=== PATIENT | male | born 1945 | race Caucasian/White ===

== ENCOUNTER 2020-07-04 08:41 | Emergency (ER) | payer OTHER, MEDICARE ==
[2020-07-04 08:57] VITALS: BP 130/78; PULSE 80
--- NOTE | 2020-07-04 09:27 | EDM.PDOC ---
ED HPI GENERAL MEDICAL PROBLEM - General Chief Complaint: Respiratory Problem Stated Complaint: [id number] CHEST COLD/SWELLING OF LEGS Time Seen by Provider: 07/04/20 09:26 Source of Information: Reports: Patient, RN, RN Notes Reviewed History Limitations: Reports: No Limitations - History of Present Illness INITIAL COMMENTS - FREE TEXT/NARRATIVE: Patient presents to ER per wheelchair with daughters with complaint of increased shortness of breath over the past week. Patient admits to history of CHF, diabetes, atrial fibrillation. Patient denies fever chills, states he has had a cough from time to time, and vomits with coughing from time to time. Patient states he has not been able to produce any sputum. States his legs have had increased edema over the past couple of weeks. Patient is a and is seen at the [place] [facility] [place] in [place]. Family called the [place] stating the patient was very short of breath this morning. States he woke up from sleep wi th shortness of breath, increased shortness of breath with activity. Patient denies any chest pains. Any recent illness, although states he has had some sinus congestion but there has been combine and going on around his home. 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 Daughters are his caretakers, both work and nursing homes and are routinely checked for COVID, have all been negative. Patient admits to taking hydrochlorothiazide on a daily basis, and also takes a water pill, unknown. [facility], and increased dose began last evening. [facility] also state patient has had a 10 pound weight increase since 06/21/2020. Onset: Gradual - Related Data Allergies Allergy/AdvReac Type Severity Reaction Status Date / Time No Known Allergies Allergy Verified 07/04/20 08:57 Home Meds: Home Meds Clopidogrel [Plavix] 75 mg PO BEDTIME 02/05/15 [History] Dorzolamide HCl/Timolol Maleat [Dorzolamide-Timolol Eye Drops] 1 drop EYEBOTH BID 02/05/15 [History] Folic Acid 1 mg PO DAILY 02/05/15 [History] Gabapentin [Neurontin] 100 mg PO BID 02/05/15 [History] Insulin Aspart [NovoLOG] 20 units SQ ACBREAKFAST 02/05/15 [History] Insulin Glarg,Human.Rec.Analog [Lantus Solostar] 75 units SQ BEDTIME 02/05/15 [History] Latanoprost [Xalatan 0.005% Ophth Soln] 1 drop EYEBOTH BEDTIME 02/05/15 [History] Lisinopril 20 mg PO BID 02/05/15 [History] Loperamide [Imodium] 4 mg PO ASDIRECTED PRN 02/05/15 [History] Metoprolol Tartrate [Lopressor] 50 mg PO BID 02/05/15 [History] Omeprazole 20 mg PO BID 02/05/15 [History] Rosuvastatin [Crestor] 20 mg PO BEDTIME 02/05/15 [History] Tamsulosin [Flomax] 0.4 mg PO DAILY 02/05/15 [History] hydroCHLOROthiazide [Hydrochlorothiazide] 12.5 mg PO DAILY 02/05/15 [History] Past Medical History HEENT History: Reports: Other (See Below) Other HEENT History: proliferative retinopathy, Cardiovascular History: Reports: CAD, High Cholesterol, Hypertension Respiratory History: Reports: None Gastrointestinal History: Reports: Other (See Below) Other Gastrointestinal History: Colon CA, Renal cell ca Genitourinary History: Reports: Chronic Renal Insuffiency Other Genitourinary History: CKD stage 3 Musculoskeletal History: Reports: Back Pain, Chronic Neurological History: Reports: Neuropathy, Diabetic, Neuropathy, Peripheral Psychiatric History: Reports: Depression Endocrine/Metabolic History: Reports: Obesity/BMI 30+ Hematologic History: Reports: None Immunologic History: Reports: None Oncologic (Cancer) History: Reports: Colon Dermatologic History: Reports: None - Infectious Disease History Infectious Disease History: Reports: Chicken Pox, Measles, Mumps - Past Surgical History Head Surgeries/Procedures: Reports: None Social & Family History - Tobacco Use Smoking Status *Q: Never Smoker Second Hand Smoke Exposure: No - Caffeine Use Caffeine Use: Reports: None - Recreational Drug Use Recreational Drug Use: No ED ROS GENERAL - Review of Systems Review Of Systems: Comprehensive ROS is negative, except as noted in HPI. ED EXAM, GENERAL - Physical Exam Exam: See Below Exam Limited By: No Limitations General Appearance: Alert, WD/WN, Mild Distress Eye Exam: Bilateral Eye: EOMI, Normal Inspection Ears: Normal External Exam, Hearing Grossly Normal Nose: Normal Inspection Throat/Mouth: Normal Inspection, Normal Voice, No Airway Compromise Head: Atraumatic, Normocephalic Neck: Normal Inspection, Supple, Non-Tender, Full Range of Motion Respiratory/Chest: Decreased Breath Sounds, Crackles (Right base ) Cardiovascular: Normal Peripheral Pulses, No Murmur, No Rub, Irregularly Irregular, Other (+3-+4 lower leg edema) Peripheral Pulses: 2+: Radial (L), Radial (R) GI/Abdominal: Normal Bowel Sounds, Soft, Non-Tender (Male) Exam: Deferred Rectal (Males) Exam: Deferred Back Exam: Normal Inspection, Decreased Range of Motion Extremities: Pedal Edema (+3-4 lower extremity, bilateral) Neurological: Alert, Oriented, Normal Cognition Psychiatric: Normal Affect, Normal Mood Skin Exam: Warm, Dry, Intact, Normal Color, No Rash Lymphatic: No Adenopathy Course - Vital Signs Last Recorded V/S: Last Vital Signs Temp 98.1 F 07/04/20 08:50 Pulse 80 07/04/20 08:50 Resp 16 07/04/20 08:50 BP 130/78 07/04/20 08:50 Pulse Ox 95 07/04/20 08:50 - Orders/Labs/Meds Labs: Laboratory Tests 07/04/20 07/04/20 Range/Units 09:58 09:58 WBC 9.6 (5.0-10.0) 10^3/uL RBC 4.27 L (4.6-6.2) 10^6/uL Hgb 11.9 L (14.0-18.0) g/dL Hct 37.0 L (40.0-54.0) % MCV 86.7 D (80-100) fL MCH 27.9 (27.0-34.0) pg MCHC 32.2 L (33.0-35.0) g/dL Plt Count 225 (150-450) 10^3/uL Neut % (Auto) 75.0 (42.2-75.2) % Lymph % (Auto) 13.0 L (20.5-50.1) % [place] % (Auto) 9.3 H (2-8) % Eos % (Auto) 2.2 (1.0-3.0) % Baso % (Auto) 0.5 (0.0-1.0) % Sodium 145 (136-145) mmol/L Potassium 5.0 (3.5-5.1) mmol/L Chloride 107 (98-107) mmol/L Carbon Dioxide 29 (21-32) mmol/L Anion Gap 14.0 H (7-13) mEq/L BUN 49 H (7-18) mg/dL Creatinine 2.74 H (0.70-1.30) mg/dL Est Cr Clr Drug Dosing 27.08 mL/min Estimated GFR (MDRD) 23 BUN/Creatinine Ratio 17.9 (No establ ref range) Glucose 231 H (74-99) mg/dL Calcium 8.9 (8.5-10.1) mg/dL Total Bilirubin 0.5 (0.2-1.0) mg/dL AST 17 (15-37) U/L ALT 17 (16-63) U/L Alkaline Phosphatase 136 H (46-116) U/L B-Natriuretic Peptide 289 H (0-100) pg/ml Total Protein 7.8 (6.4-8.2) g/dL Albumin 3.3 L (3.4-5.0) g/dL Globulin 4.5 Albumin/Globulin Ratio 0.73 Meds: Medications Discontinued Medications Generic Name Dose Route Start Last Admin Trade Name Freq PRN Reason Stop Dose Admin Ceftriaxone Sodium Confirm 07/04/20 11:00 07/04/20 11:17 Rocephin Administered 07/04/20 11:01 Not Given Dose 1 gm .ROUTE .STK-MED ONE Furosemide 60 mg 07/04/20 10:58 07/04/20 11:14 Lasix IVPUSH 07/04/20 10:59 60 mg NOW ONE Administration Ceftriaxone Sodium 1 gm/ 50 mls @ 100 mls/hr 07/04/20 10:57 07/04/20 11:16 Sodium Chloride IV 07/04/20 11:26 100 mls/hr ONETIME ONE Administration Methylprednisolone Sodium Succinate 125 mg 07/04/20 10:57 07/04/20 11:15 Solu-Medrol IVPUSH 07/04/20 10:58 125 mg ONETIME ONE Administration Departure - Departure Time of Disposition: 11:53 Disposition: Home, Self-Care 01 Condition: Fair Clinical Impression: Congestive heart failure Qualifiers: Heart failure type: unspecified Heart failure chronicity: acute on chronic Qualified Code(s): I50.9 - Heart failure, unspecified Pneumonia Qualifiers: Pneumonia type: due to unspecified organism Laterality: unspecified laterality Lung location: unspecified part of lung Qualified Code(s): J18.9 - Pneumonia, unspecified organism - Discharge Information *PRESCRIPTION DRUG MONITORING PROGRAM REVIEWED*: No *COPY OF PRESCRIPTION DRUG MONITORING REPORT IN PATIENT BRANDI: No Instructions: Shortness of Breath, Adult, [id number], Heart Failure, Self Care, [id number], Upper Respiratory Infection, Adult, [id number], Community- Acquired Pneumonia, Adult, [id number] Forms: ED Department Discharge Additional Instructions: Rx: Medrol Dosepak, azithromycin Follow[place]up [place] next [place] Return to the ER with any worsening of symptoms Sepsis Event Note (ED) - Evaluation Sepsis Screening Result: No Definite Risk - Focused Exam Vital Signs: Vital Signs Temp Pulse Resp BP Pulse Ox 07/04/20 08:50 98.1 F 80 16 130/78 95
--- NOTE | 2020-07-04 10:29 | CR ---
PROCEDURE INFORMATION: Exam: XR Chest, 2 Views Exam date and time: 07/04/2020 10:00 AM Age: 75 years old Clinical indication: Shortness of breath; Additional info: SOB, congestion TECHNIQUE: Imaging protocol: XR of the chest Views: 2 views. COMPARISON: CT Chest wo Cont 02/24/2018 1:38 PM FINDINGS: Lungs: There is mild perihilar interstitial prominence consistent with volume overload or early congestive heart failure. Ground-glass airspace disease at the lower lung hansen bilaterally. Pleural space: There are bilateral small pleural effusions blunting the costophrenic angles. Heart/Mediastinum: Unremarkable. No cardiomegaly. Bones/joints: There are diffuse enthesopathic changes consistent with benign diffuse idiopathic skeletal hyperostosis (DISH). IMPRESSION: 1. There is mild perihilar interstitial prominence consistent with volume overload or early congestive heart failure. 2. Ground-glass airspace disease at the lower lung hansen bilaterally.
[2020-07-04] MEDS ORDERED: cefTRIAXone 1 GM in Sodium Chloride 0.9% 50 ML IV ONE (10:57)
[2020-07-04] MEDS ORDERED: methylPREDNISolone Sodium Succinate 125 MG/2 ML SDV IVPUSH ONE (10:57)
[2020-07-04] MEDS ORDERED: Furosemide 40 MG/4 ML VIAL IVPUSH ONE (10:58)
[2020-07-04] MEDS ORDERED: cefTRIAXone 1 GM Vial ONE (11:00)
== END 2020-07-04 12:01 | disposition home or self-care (01) ==
LOC: DL.ED 08:41
DX: J18.9 Pneumonia, unspecified organism (principal); I13.10 Hypertensive heart and chronic kidney disease without heart failure, with stage 1 through stage 4 chronic kidney disease, or unspecified chronic kidney disease; E11.22 Type 2 diabetes mellitus with diabetic chronic kidney disease; I50.9 Heart failure, unspecified; N18.3 Chronic kidney disease, stage 3 (moderate); I25.10 Atherosclerotic heart disease of native coronary artery without angina pectoris; E11.42 Type 2 diabetes mellitus with diabetic polyneuropathy; E66.9 Obesity, unspecified; Z68.37 Body mass index [BMI] 37.0-37.9, adult; Z79.4 Long term (current) use of insulin; Z79.899 Other long term (current) drug therapy
CPT/HCPCS: 36415; 71046; 80053; 83880; 85025; 96365; 96375; 99285-25; J0696; J1940; J2930; J7050

== ENCOUNTER 2020-07-05 10:36 | Emergency (ER) | payer OTHER, MEDICARE ==
[2020-07-05] MEDS ORDERED: Sodium Chloride 0.9% 10 ML Syringe FLUSH PRN (10:47)
[2020-07-05 11:27] LABS: ANION GAP 18.6 mEq/L (7-13); CHLORIDE,CL 101 mmol/L (98-107); SODIUM,NA 138 mmol/L (136-145)
--- NOTE | 2020-07-05 11:42 | CR ---
EXAMINATION: Chest 2V SEX: Male AGE: 75 years CLINICAL HISTORY: 75-year-old male complaining of SOB. INTERPRETATION: Abnormal. Generalized abnormally coarse interstitial pattern (edema versus fibrosis) worse than on recent 04 July 2020 film but new when compared to November 2006 exam. Fluid in the fissures. Normal cardiac silhouette but close clinical correlation with regard to patient weight and BNP please. EKG? No lung mass, hilar lymphadenopathy or focal lobar infiltrate/atelectasis. No pneumothorax or pneumomediastinum.
[2020-07-05] MEDS ORDERED: Aspirin 81 MG Tab.Chew PO ONE (11:58)
[2020-07-05] MEDS ORDERED: Furosemide 40 MG/4 ML VIAL IVPUSH ONE (11:58)
--- NOTE | 2020-07-05 12:34 | EDM.PDOC ---
ED HPI GENERAL MEDICAL PROBLEM - General Chief Complaint: Respiratory Problem Stated Complaint: TROUBLE BREATHING Time Seen by Provider: 07/05/20 11:00 Source of Information: Reports: Patient, Family, RN, RN Notes Reviewed History Limitations: Reports: No Limitations - History of Present Illness INITIAL COMMENTS - FREE TEXT/NARRATIVE: Patient presents to ER with daughter per POV with complaint of increased shortness of breath. Patient seen in ER yesterday with gradual increased shortness of breath over the last week. States [facility] Patient denied any chest pain, continues to deny any chest pain today. Yesterday patient was given Solu-Medrol, Lasix 60, Rocephin 1 g. Patient sent home with antibiotics and Medrol Dosepak. Patient visibly short of breath with any kind of exertion today. Continues to have 3-4+ pitting edema. Onset: Gradual Duration: Constant, Getting Worse Location: Reports: Chest - Related Data Allergies Allergy/AdvReac Type Severity Reaction Status Date / Time No Known Allergies Allergy Verified 07/04/20 08:57 Home Meds: Home Meds Clopidogrel [Plavix] 75 mg PO BEDTIME 02/05/15 [History] Dorzolamide HCl/Timolol Maleat [Dorzolamide-Timolol Eye Drops] 1 drop EYEBOTH BID 02/05/15 [History] Folic Acid 1 mg PO DAILY 02/05/15 [History] Gabapentin [Neurontin] 100 mg PO BID 02/05/15 [History] Insulin Aspart [NovoLOG] 20 units SQ ACBREAKFAST 02/05/15 [History] Insulin Glarg,Human.Rec.Analog [Lantus Solostar] 75 units SQ BEDTIME 02/05/15 [History] Latanoprost [Xalatan 0.005% Ophth Soln] 1 drop EYEBOTH BEDTIME 02/05/15 [History] Lisinopril 20 mg PO BID 02/05/15 [History] Loperamide [Imodium] 4 mg PO ASDIRECTED PRN 02/05/15 [History] Metoprolol Tartrate [Lopressor] 50 mg PO BID 02/05/15 [History] Omeprazole 20 mg PO BID 02/05/15 [History] Rosuvastatin [Crestor] 20 mg PO BEDTIME 02/05/15 [History] Tamsulosin [Flomax] 0.4 mg PO DAILY 02/05/15 [History] hydroCHLOROthiazide [Hydrochlorothiazide] 12.5 mg PO DAILY 02/05/15 [History] Past Medical History HEENT History: Reports: Other (See Below) Other HEENT History: proliferative retinopathy, Cardiovascular History: Reports: CAD, High Cholesterol, Hypertension Respiratory History: Reports: None Gastrointestinal History: Reports: Other (See Below) Other Gastrointestinal History: Colon CA, Renal cell ca Genitourinary History: Reports: Chronic Renal Insuffiency Other Genitourinary History: CKD stage 3 Musculoskeletal History: Reports: Back Pain, Chronic Neurological History: Reports: Neuropathy, Diabetic, Neuropathy, Peripheral Psychiatric History: Reports: Depression Endocrine/Metabolic History: Reports: Obesity/BMI 30+ Hematologic History: Reports: None Immunologic History: Reports: None Oncologic (Cancer) History: Reports: Colon Dermatologic History: Reports: None - Infectious Disease History Infectious Disease History: Reports: Chicken Pox, Measles, Mumps - Past Surgical History Head Surgeries/Procedures: Reports: None Social & Family History - Family History Family Medical History: Noncontributory - Tobacco Use Smoking Status *Q: Never Smoker - Caffeine Use Caffeine Use: Reports: Coffee - Recreational Drug Use Recreational Drug Use: No ED ROS GENERAL - Review of Systems Review Of Systems: Comprehensive ROS is negative, except as noted in HPI. ED EXAM, GENERAL - Physical Exam Exam: See Below Exam Limited By: No Limitations General Appearance: Alert, WD/WN, Mild Distress Eye Exam: Bilateral Eye: Normal Inspection Ears: Normal External Exam, Hearing Grossly Normal Nose: Normal Inspection Throat/Mouth: Normal Inspection, Normal Voice, No Airway Compromise Head: Atraumatic, Normocephalic Neck: Normal Inspection, Supple, Non-Tender, Full Range of Motion Respiratory/Chest: Decreased Breath Sounds, Crackles (right base) Cardiovascular: Normal Peripheral Pulses, No Gallop, No JVD, No Murmur, No Rub, Irregularly Irregular Peripheral Pulses: 2+: Radial (L), Radial (R) GI/Abdominal: Normal Bowel Sounds, Soft, Non-Tender (Male) Exam: Deferred Rectal (Males) Exam: Deferred Back Exam: Normal Inspection, Full Range of Motion, NT Extremities: Normal Inspection, Non-Tender, Normal Capillary Refill, Pedal Edema (+3-4 lower extremity edema ), Limited Range of Motion Neurological: Alert, Oriented, CN II-XII Intact, Normal Cognition, Normal Reflexes, No Motor/Sensory Deficits Psychiatric: Normal Affect, Normal Mood Skin Exam: Warm, Dry, Intact, Normal Color, No Rash Lymphatic: No Adenopathy Course - Vital Signs Last Recorded V/S: Last Vital Signs Temp 96.8 F L 07/05/20 13:00 Pulse 106 H 07/05/20 14:10 Resp 14 07/05/20 14:10 BP 120/74 07/05/20 14:10 Pulse Ox 92 L 07/05/20 14:10 - Orders/Labs/Meds Orders: Active Orders 24 hr Category Date Time Status EKG Documentation Completion [RC] STAT Care 07/05/20 10:48 Active Peripheral IV Care [RC] . DIRECTED Care 07/05/20 10:49 Active Sodium Chloride 0.9% [Saline Flush] Med 07/05/20 10:47 Active 10 ml FLUSH ASDIRECTED PRN Peripheral IV Insertion Adult [OM.PC] Stat Oth 07/05/20 10:48 Ordered Medication Orders Sodium Chloride (Saline Flush) 10 ml FLUSH ASDIRECTED PRN PRN Reason: Keep Vein Open Last Admin: 07/05/20 12:34 Dose: 10 ml Documented by: NAHED Labs: Laboratory Tests 07/05/20 07/05/20 07/05/20 Range/Units 10:59 10:59 10:59 WBC 16.7 H (5.0-10.0) 10^3/uL RBC 4.46 L (4.6-6.2) 10^6/uL Hgb 12.4 L (14.0-18.0) g/dL Hct 38.3 L (40.0-54.0) % MCV 85.9 (80-100) fL MCH 27.8 (27.0-34.0) pg MCHC 32.4 L (33.0-35.0) g/dL Plt Count 249 (150-450) 10^3/uL Neut % (Auto) 88.3 H (42.2-75.2) % Lymph % (Auto) 5.1 L (20.5-50.1) % [place] % (Auto) 6.3 (2-8) % Eos % (Auto) 0.1 L (1.0-3.0) % Baso % (Auto) 0.2 (0.0-1.0) % PT 11.0 (9.0-12.0) SEC INR 1.2 (0.9-1.2) D-Dimer, Quantitative (0-400) ng/mL Sodium 138 (136-145) mmol/L Potassium 4.6 (3.5-5.1) mmol/L Chloride 101 (98-107) mmol/L Carbon Dioxide 23 (21-32) mmol/L Anion Gap 18.6 H (7-13) mEq/L BUN 62 H (7-18) mg/dL Creatinine 4.01 H D (0.70-1.30) mg/dL Est Cr Clr Drug Dosing TNP Estimated GFR (MDRD) 15 BUN/Creatinine Ratio 15.5 (No establ ref range) Glucose 385 H (74-99) mg/dL Calcium 8.7 (8.5-10.1) mg/dL Total Bilirubin 0.4 (0.2-1.0) mg/dL AST 28 (15-37) U/L ALT 31 (16-63) U/L Alkaline Phosphatase 149 H (46-116) U/L Troponin I 0.421 H* (0.000-0.056) ng/mL C-Reactive Protein (0.0-0.9) mg/dL B-Natriuretic Peptide 774 H (0-100) pg/ml Total Protein 8.0 (6.4-8.2) g/dL Albumin 3.3 L (3.4-5.0) g/dL Globulin 4.7 Albumin/Globulin Ratio 0.70 SARS CoV-2 RNA Rapid STACI (NEGATIVE) 07/05/20 07/05/20 07/05/20 Range/Units 10:59 10:59 11:45 WBC (5.0-10.0) 10^3/uL RBC (4.6-6.2) 10^6/uL Hgb (14.0-18.0) g/dL Hct (40.0-54.0) % MCV (80-100) fL MCH (27.0-34.0) pg MCHC (33.0-35.0) g/dL Plt Count (150-450) 10^3/uL Neut % (Auto) (42.2-75.2) % Lymph % (Auto) (20.5-50.1) % [place] % (Auto) (2-8) % Eos % (Auto) (1.0-3.0) % Baso % (Auto) (0.0-1.0) % PT (9.0-12.0) SEC INR (0.9-1.2) D-Dimer, Quantitative 342 (0-400) ng/mL Sodium (136-145) mmol/L Potassium (3.5-5.1) mmol/L Chloride (98-107) mmol/L Carbon Dioxide (21-32) mmol/L Anion Gap (7-13) mEq/L BUN (7-18) mg/dL Creatinine (0.70-1.30) mg/dL Est Cr Clr Drug Dosing Estimated GFR (MDRD) BUN/Creatinine Ratio (No establ ref range) Glucose (74-99) mg/dL Calcium (8.5-10.1) mg/dL Total Bilirubin (0.2-1.0) mg/dL AST (15-37) U/L ALT (16-63) U/L Alkaline Phosphatase (46-116) U/L Troponin I (0.000-0.056) ng/mL C-Reactive Protein 3.5 H (0.0-0.9) mg/dL B-Natriuretic Peptide (0-100) pg/ml Total Protein (6.4-8.2) g/dL Albumin (3.4-5.0) g/dL Globulin Albumin/Globulin Ratio SARS CoV-2 RNA Rapid STACI Negative (NEGATIVE) Meds: Medications Generic Name Dose Route Start Last Admin Trade Name Freq PRN Reason Stop Dose Admin Sodium Chloride 10 ml 07/05/20 10:47 07/05/20 12:34 Saline Flush FLUSH 10 ml ASDIRECTED PRN Administration Keep Vein Open Discontinued Medications Generic Name Dose Route Start Last Admin Trade Name Freq PRN Reason Stop Dose Admin Aspirin 324 mg 07/05/20 11:58 07/05/20 12:34 Aspirin PO 07/05/20 11:59 324 mg ONETIME ONE Administration Furosemide 80 mg 07/05/20 11:58 07/05/20 12:33 Lasix IVPUSH 07/05/20 11:59 80 mg NOW ONE Administration Departure - Departure Time of Disposition: 15:11 Disposition: DC/Tfer to Acute Hospital 02 Condition: Poor Clinical Impression: Chronic kidney disease (CKD), stage IV (severe), NSTEMI (non-ST elevated myocardial infarction), SOB (shortness of breath) Congestive heart failure Qualifiers: Heart failure type: unspecified Heart failure chronicity: acute on chronic Qualified Code(s): I50.9 - Heart failure, unspecified Diabetes Qualifiers: Diabetes mellitus type: type 2 Diabetes mellitus half-way insulin use: with half-way use Diabetes mellitus complication status: with other specified complication Qualified Code(s): E11.69 - Type 2 diabetes mellitus with other specified complication - Discharge Information *PRESCRIPTION DRUG MONITORING PROGRAM REVIEWED*: No *COPY OF PRESCRIPTION DRUG MONITORING REPORT IN PATIENT BRANDI: No Referrals: [facility] [Primary Care Provider] - Forms: ED Department Discharge, Interfacility Transfer [place] Sepsis Event Note (ED) - Evaluation Sepsis Screening Result: No Definite Risk - Focused Exam Vital Signs: Vital Signs Temp Pulse Resp BP Pulse Ox 07/05/20 14:10 106 H 14 120/74 92 L 07/05/20 13:00 96.8 F L 113 H 14 147/81 H 97 07/05/20 10:50 98.1 F 112 H 14 132/75 94 L - My Orders Last 24 Hours: My Active Orders 07/05/20 10:47 Sodium Chloride 0.9% [Saline Flush] 10 ml FLUSH ASDIRECTED PRN 07/05/20 10:48 EKG Documentation Completion [RC] STAT Peripheral IV Insertion Adult [OM.PC] Stat 07/05/20 10:49 Peripheral IV Care [RC] . DIRECTED - Assessment/Plan Last 24 Hours: My Active Orders 07/05/20 10:47 Sodium Chloride 0.9% [Saline Flush] 10 ml FLUSH ASDIRECTED PRN 07/05/20 10:48 EKG Documentation Completion [RC] STAT Peripheral IV Insertion Adult [OM.PC] Stat 07/05/20 10:49 Peripheral IV Care [RC] . DIRECTED
[2020-07-05 14:11] VITALS: BP 120/74; PULSE 106
== END 2020-07-05 15:00 ==
LOC: DL.ED 10:36
DX: I21.4 Non-ST elevation (NSTEMI) myocardial infarction (principal); E11.69 Type 2 diabetes mellitus with other specified complication; I13.0 Hypertensive heart and chronic kidney disease with heart failure and stage 1 through stage 4 chronic kidney disease, or unspecified chronic kidney disease; I50.9 Heart failure, unspecified; E11.22 Type 2 diabetes mellitus with diabetic chronic kidney disease; N18.4 Chronic kidney disease, stage 4 (severe); E11.42 Type 2 diabetes mellitus with diabetic polyneuropathy; I25.10 Atherosclerotic heart disease of native coronary artery without angina pectoris; E78.00 Pure hypercholesterolemia, unspecified; E66.9 Obesity, unspecified; Z68.39 Body mass index [BMI] 39.0-39.9, adult; Z79.02 Long term (current) use of antithrombotics/antiplatelets; Z79.4 Long term (current) use of insulin; Z79.899 Other long term (current) drug therapy; Z20.828 Contact with and (suspected) exposure to other viral communicable diseases
CPT/HCPCS: 36415; 71046; 80053; 83880; 84484; 85025; 85379; 85610; 86140; 87635; 93005; 96374; 99284; 99285; A9270; J1940; U0002

== ENCOUNTER 2021-07-08 19:08 | Emergency (ER) | payer OTHER, MEDICARE ==
[2021-07-08 20:04] VITALS: BP 116/67; PULSE 72
[2021-07-08] MEDS ORDERED: Bacitracin Oint 1 GM U/D Packet TOP ONE (20:48)
[2021-07-08] MEDS ORDERED: Clindamycin HCl 150 MG Cap PO ONE (20:50)
--- NOTE | 2021-07-08 20:58 | EDM.PDOC ---
ED HPI GENERAL MEDICAL PROBLEM - General Chief Complaint: Skin Complaint Stated Complaint: INFECTED BLISTER ON RIGHT LEG Time Seen by Provider: 07/08/21 20:30 Source of Information: Reports: Patient, Family, RN History Limitations: Reports: No Limitations - History of Present Illness INITIAL COMMENTS - FREE TEXT/NARRATIVE: ED with report of sores to right knee, Walking on [place] last week picking things off floor and blisters to right knee, Is seeing wound care [facility] for meng to feet and called there and was told to use the silvadene to knee. Since using silvadene, knee more red painful and weeping. Denies known hx of MRSA. Diabetic blood sugars have been 130's - Related Data Allergies Allergy/AdvReac Type Severity Reaction Status Date / Time No Known Allergies Allergy Verified 07/04/20 08:57 Home Meds: Home Meds Clopidogrel [Plavix] 75 mg PO BEDTIME 02/05/15 [History] Dorzolamide HCl/Timolol Maleat [Dorzolamide-Timolol Eye Drops] 1 drop EYEBOTH BID 02/05/15 [History] Folic Acid 1 mg PO DAILY 02/05/15 [History] Gabapentin [Neurontin] 100 mg PO BID 02/05/15 [History] Insulin Aspart [NovoLOG] 20 units SQ ACBREAKFAST 02/05/15 [History] Insulin Glarg,Human.Rec.Analog [Lantus Solostar] 75 units SQ BEDTIME 02/05/15 [History] Latanoprost [Xalatan 0.005% Ophth Soln] 1 drop EYEBOTH BEDTIME 02/05/15 [History] Lisinopril 20 mg PO BID 02/05/15 [History] Loperamide [Imodium] 4 mg PO ASDIRECTED PRN 02/05/15 [History] Metoprolol Tartrate [Lopressor] 50 mg PO BID 02/05/15 [History] Omeprazole 20 mg PO BID 02/05/15 [History] Rosuvastatin [Crestor] 20 mg PO BEDTIME 02/05/15 [History] Tamsulosin [Flomax] 0.4 mg PO DAILY 02/05/15 [History] hydroCHLOROthiazide [Hydrochlorothiazide] 12.5 mg PO DAILY 02/05/15 [History] Past Medical History HEENT History: Reports: Other (See Below) Other HEENT History: proliferative retinopathy, Cardiovascular History: Reports: CAD, High Cholesterol, Hypertension Respiratory History: Reports: None Gastrointestinal History: Reports: Other (See Below) Other Gastrointestinal History: Colon CA, Renal cell ca Genitourinary History: Reports: Chronic Renal Insuffiency Other Genitourinary History: CKD stage 3 Musculoskeletal History: Reports: Back Pain, Chronic Neurological History: Reports: Neuropathy, Diabetic, Neuropathy, Peripheral Psychiatric History: Reports: Depression Endocrine/Metabolic History: Reports: Diabetes, Type II, Obesity/BMI 30+ Hematologic History: Reports: None Immunologic History: Reports: None Oncologic (Cancer) History: Reports: Colon Dermatologic History: Reports: None - Infectious Disease History Infectious Disease History: Reports: Chicken Pox, Measles, Mumps - Past Surgical History Head Surgeries/Procedures: Reports: None Social & Family History - Family History Family Medical History: No Pertinent Family History - Tobacco Use Tobacco Use Status *Q: Never Tobacco User Second Hand Smoke Exposure: No - Caffeine Use Caffeine Use: Reports: None - Recreational Drug Use Recreational Drug Use: No ED ROS GENERAL - Review of Systems Review Of Systems: See Below Constitutional: Denies: Fever, Chills, Malaise, Weakness HEENT: Reports: No Symptoms Respiratory: Reports: No Symptoms Cardiovascular: Reports: No Symptoms Skin: Reports: Erythema, Wound, Change in Color Neurological: Reports: No Symptoms ED EXAM, SKIN/RASH Exam: See Below Exam Limited By: No Limitations General Appearance: Alert, No Apparent Distress, Obese Eye Exam: Bilateral Eye: Conjunctival Injection, PERRL Ears: Normal External Exam, Hearing Loss Nose: Normal Inspection Throat/Mouth: Normal Inspection Head: Atraumatic, Normocephalic Neck: Normal Inspection Respiratory/Chest: No Respiratory Distress, Lungs Clear, Normal Breath Sounds Cardiovascular: Normal Peripheral Pulses, Regular Rate, Rhythm GI/Abdominal: Soft Extremities: Normal Range of Motion, Pedal Edema Neurological: Alert, Oriented, Normal Cognition Psychiatric: Normal Affect, Normal Mood Skin: Warm, Wound/Incision (right knee 2 x 4 cm yellow crusted weeping) Location, Skin: Lower Extremity, Right Associated features: Warmth, Tenderness, Inflammation, Crusting, Weeping Course - Vital Signs Last Recorded V/S: Last Vital Signs Temp 97.3 F 07/08/21 19:54 Pulse 72 07/08/21 19:54 Resp 18 07/08/21 19:54 BP 116/67 07/08/21 19:54 Pulse Ox 95 07/08/21 19:54 - Orders/Labs/Meds Orders: Active Orders 24 hr Category Date Time Status CULTURE BLOOD [BC] Stat Lab 07/08/21 20:51 Received CULTURE WOUND [RM] Stat Lab 07/08/21 22:10 Received Labs: Laboratory Tests 07/08/21 07/08/21 07/08/21 Range/Units 20:51 20:51 20:51 WBC 9.9 (5.0-10.0) 10^3/uL RBC 4.20 L (4.6-6.2) 10^6/uL Hgb 11.6 L (14.0-18.0) g/dL Hct 36.7 L (40.0-54.0) % MCV 87.4 (80-100) fL MCH 27.6 (27.0-34.0) pg MCHC 31.6 L (33.0-35.0) g/dL Plt Count 284 (150-450) 10^3/uL Neut % (Auto) 67.4 (42.2-75.2) % Lymph % (Auto) 15.7 L (20.5-50.1) % Rice % (Auto) 9.4 H (2-8) % Eos % (Auto) 6.6 H (1.0-3.0) % Baso % (Auto) 0.9 (0.0-1.0) % Sodium 141 (136-145) mmol/L Potassium 4.3 (3.5-5.1) mmol/L Chloride 101 (98-107) mmol/L Carbon Dioxide 32 (21-32) mmol/L Anion Gap 12.3 (7-13) mEq/L BUN 56 H (7-18) mg/dL Creatinine 3.58 H (0.70-1.30) mg/dL Est Cr Clr Drug Dosing 20.41 mL/min Estimated GFR (MDRD) 17 BUN/Creatinine Ratio 15.6 (No establ ref range) Glucose 92 (70-99) mg/dL Lactic Acid 1.6 (0.4-2.0) mmol/L Calcium 8.6 (8.5-10.1) mg/dL Total Bilirubin 0.4 (0.2-1.0) mg/dL AST 20 (15-37) U/L ALT 15 L (16-63) U/L Alkaline Phosphatase 133 H (46-116) U/L Total Protein 8.5 H (6.4-8.2) g/dL Albumin 3.1 L (3.4-5.0) g/dL Globulin 5.4 Albumin/Globulin Ratio 0.57 Meds: Medications Discontinued Medications Generic Name Dose Route Start Last Admin Trade Name Santos PRN Reason Stop Dose Admin Bacitracin 1 dose 07/08/21 20:48 07/08/21 21:20 Bacitracin Oint 1 Gm U/D Packet TOP 07/08/21 20:49 1 dose ONETIME ONE Administration Clindamycin HCl 300 mg 07/08/21 20:50 07/08/21 21:20 Clindamycin Hcl 150 Mg Cap PO 07/08/21 20:51 300 mg ONETIME ONE Administration Departure - Departure Time of Disposition: 22:01 Disposition: Home, Self-Care 01 Condition: Good Clinical Impression: Wound infection, Chronic kidney disease (CKD), stage IV (severe) - Discharge Information *PRESCRIPTION DRUG MONITORING PROGRAM REVIEWED*: No *COPY OF PRESCRIPTION DRUG MONITORING REPORT IN PATIENT BRANDI: No Instructions: Wound Infection, [id number] Referrals: PCP,None [Primary Care Provider] - Forms: ED Department Discharge Additional Instructions: clinic follow up with primary care or Wednesday to recheck wound on knee sooner if increase redness swelling or fever Clindamycin 300mg three times daily dressing change twice daily to knee with mupirocin ointment, stop silvadene to knee continue other home medications wash wounds twice daily with soap and water, pat dry gently Sepsis Event Note (ED) - Focused Exam Vital Signs: Vital Signs Temp Pulse Resp BP Pulse Ox 07/08/21 19:54 97.3 F 72 18 116/67 95 - My Orders Last 24 Hours: My Active Orders 07/08/21 20:51 CULTURE BLOOD [BC] Stat 07/08/21 22:10 CULTURE WOUND [RM] Stat - Assessment/Plan Last 24 Hours: My Active Orders 07/08/21 20:51 CULTURE BLOOD [BC] Stat 07/08/21 22:10 CULTURE WOUND [RM] Stat
[2021-07-08 21:27] LABS: ANION GAP 12.3 mEq/L (7-13)
== END 2021-07-08 22:22 | disposition home or self-care (01) ==
LOC: DL.ED 19:08
DX: T81.40XA Infection following a procedure, unspecified, initial encounter (principal); I25.10 Atherosclerotic heart disease of native coronary artery without angina pectoris; E78.00 Pure hypercholesterolemia, unspecified; I12.9 Hypertensive chronic kidney disease with stage 1 through stage 4 chronic kidney disease, or unspecified chronic kidney disease; E11.22 Type 2 diabetes mellitus with diabetic chronic kidney disease; E11.40 Type 2 diabetes mellitus with diabetic neuropathy, unspecified; N18.4 Chronic kidney disease, stage 4 (severe); E66.9 Obesity, unspecified; Z68.30 Body mass index [BMI] 30.0-30.9, adult
CPT/HCPCS: 36415; 80053; 83605; 85025; 87040; 87070; 99283; A9270

== ENCOUNTER 2021-10-16 08:57 | Inpatient (IN) | payer OTHER, MEDICARE ==
[2021-10-16 10:11] LABS: ANION GAP 17.3 mEq/L (7-13)
--- NOTE | 2021-10-16 10:11 | EDM.PDOC ---
ED HPI GENERAL MEDICAL PROBLEM - General Chief Complaint: Respiratory Problem Stated Complaint: HISTORY OF SHORTNESS OF BREATH Time Seen by Provider: 10/16/21 10:00 Source of Information: Reports: Patient History Limitations: Reports: No Limitations - History of Present Illness INITIAL COMMENTS - FREE TEXT/NARRATIVE: This 76 yo male patient was brought to the ED by his family due to increased shortness of breath. The patient reports his shortness of breath started over 1 week ago. The patient reports he has had a cough throughout the past week. The patient reports he has not been able to walk as far as previously due to struggling for oxygen. The patient reports he does have a CPAP, but has not been able to use it due to feeling like he is "smothering". The patient's son reports the patient's oxygen level has been 86% at home. Duration: Week(s):, Constant, Getting Worse Location: Reports: Chest Quality: Reports: Other Severity: Moderate Improves with: Reports: None Worsens with: Reports: None Context: Reports: Other Associated Symptoms: Reports: Cough, Shortness of Breath - Related Data Allergies Allergy/AdvReac Type Severity Reaction Status Date / Time clindamycin Allergy Rash Verified 10/16/21 10:22 Home Meds: Home Meds Clopidogrel [Plavix] 75 mg PO BEDTIME 02/05/15 [History] Dorzolamide HCl/Timolol Maleat [Dorzolamide-Timolol Eye Drops] 1 drop EYEBOTH BID 02/05/15 [History] Folic Acid 2 mg PO DAILY 02/05/15 [History] Gabapentin [Neurontin] 100 mg PO BID 02/05/15 [History] Insulin Aspart [NovoLOG] 20 units SQ ACBREAKFAST 02/05/15 [History] Insulin Glarg,Human.Rec.Analog [Lantus Solostar] 34 units SQ BID 02/05/15 [History] Latanoprost [Xalatan 0.005% Ophth Soln] 1 drop EYEBOTH BEDTIME 02/05/15 [History] Lisinopril 20 mg PO BID 02/05/15 [History] Loperamide [Imodium] 4 mg PO ASDIRECTED PRN 02/05/15 [History] Metoprolol Tartrate [Lopressor] 50 mg PO BID 02/05/15 [History] Omeprazole 20 mg PO BID 02/05/15 [History] Rosuvastatin [Crestor] 20 mg PO BEDTIME 02/05/15 [History] Tamsulosin [Flomax] 0.4 mg PO DAILY 02/05/15 [History] hydroCHLOROthiazide [Hydrochlorothiazide] 12.5 mg PO DAILY 02/05/15 [History] Past Medical History HEENT History: Reports: Other (See Below) Other HEENT History: proliferative retinopathy, Cardiovascular History: Reports: CAD, High Cholesterol, Hypertension, CA Respiratory History: Reports: COPD, Sleep Apnea Gastrointestinal History: Reports: Other (See Below) Other Gastrointestinal History: Colon CA, Renal cell ca Genitourinary History: Reports: Chronic Renal Insuffiency Other Genitourinary History: CKD stage 3 Musculoskeletal History: Reports: Back Pain, Chronic Neurological History: Reports: Neuropathy, Diabetic, Neuropathy, Peripheral Psychiatric History: Reports: Depression Endocrine/Metabolic History: Reports: Diabetes, Type II, Obesity/BMI 30+ Hematologic History: Reports: Anemia, Iron Deficiency Immunologic History: Reports: None Oncologic (Cancer) History: Reports: Colon Dermatologic History: Reports: None - Infectious Disease History Infectious Disease History: Reports: Chicken Pox, Measles, Mumps - Past Surgical History Head Surgeries/Procedures: Reports: None Social & Family History - Family History Family Medical History: No Pertinent Family History - Tobacco Use Tobacco Use Status *Q: Heavy Tobacco User Years of Tobacco use: 40 Packs/Tins Daily: 0 - Caffeine Use Caffeine Use: Reports: Soda - Recreational Drug Use Recreational Drug Use: No ED ROS GENERAL - Review of Systems Review Of Systems: Comprehensive ROS is negative, except as noted in HPI. ED EXAM, GENERAL - Physical Exam Exam: See Below Exam Limited By: No Limitations General Appearance: Alert, WD/WN, Moderate Distress, Obese Eye Exam: Bilateral Eye: EOMI, Normal Inspection, PERRL Ears: Normal External Exam, Normal Canal, Hearing Grossly Normal, Normal TMs Nose: Normal Inspection, Normal Mucosa, No Blood Throat/Mouth: Normal Inspection, Normal Lips, Normal Teeth, Normal Gums, Normal Oropharynx, Normal Voice, No Airway Compromise Head: Atraumatic, Normocephalic Neck: Normal Inspection, Supple, Non-Tender, Full Range of Motion Respiratory/Chest: Chest Non-Tender, Decreased Breath Sounds Cardiovascular: Normal Peripheral Pulses, Regular Rate, Rhythm, No Gallop, No JVD, No Murmur, No Rub GI/Abdominal: Normal Bowel Sounds, Soft, Non-Tender, No Organomegaly, No Distention, No Abnormal Bruit, No Mass, Other (obese) (Male) Exam: Deferred Rectal (Males) Exam: Deferred Back Exam: Normal Inspection, Full Range of Motion, NT Extremities: Pedal Edema Neurological: Alert, Oriented, CN II-XII Intact, Normal Cognition, Normal Gait, Normal Reflexes, No Motor/Sensory Deficits Psychiatric: Normal Affect, Normal Mood Skin Exam: Warm, Dry, Intact, Normal Color, No Rash Lymphatic: No Adenopathy #1 Interpretation EKG Date: 10/16/21 Time: 09:49 Rhythm: NSR Rate (Beats/Min): 73 Ethel: Normal P-Wave: Present QRS: Normal ST-T: Normal QT: Normal Comparison: NA - No Prior EKG Course - Vital Signs Last Recorded V/S: Last Vital Signs Temp 97.2 F 10/16/21 09:13 Pulse 74 10/16/21 09:13 Resp 20 10/16/21 09:13 BP 146/69 H 10/16/21 09:13 Pulse Ox 93 L 10/16/21 09:13 - Orders/Labs/Meds Orders: Active Orders 24 hr Category Date Time Status Admission Diagnosis [ADT] Urgent ADT 10/16/21 12:34 Ordered Admission Status [Patient Status] [ADT] Routine ADT 10/16/21 12:34 Ordered LACTIC ACID [CHEM] Routine Lab 10/16/21 12:31 Ordered Labs: Laboratory Tests 10/16/21 10/16/21 10/16/21 Range/Units 09:20 09:20 09:40 WBC 7.0 (5.0-10.0) 10^3/uL RBC 3.83 L (4.6-6.2) 10^6/uL Hgb 10.4 L (14.0-18.0) g/dL Hct 34.3 L (40.0-54.0) % MCV 89.6 (80-100) fL MCH 27.2 (27.0-34.0) pg MCHC 30.3 L (33.0-35.0) g/dL Plt Count 260 (150-450) 10^3/uL Neut % (Auto) 73.3 (42.2-75.2) % Lymph % (Auto) 13.5 L (20.5-50.1) % Price % (Auto) 8.5 H (2-8) % Eos % (Auto) 4.4 H (1.0-3.0) % Baso % (Auto) 0.3 (0.0-1.0) % D-Dimer, Quantitative 740 H (0-400) ng/mL Sodium 143 (136-145) mmol/L Potassium 4.3 (3.5-5.1) mmol/L Chloride 103 (98-107) mmol/L Carbon Dioxide 27 (21-32) mmol/L Anion Gap 17.3 H (7-13) mEq/L BUN 34 H (7-18) mg/dL Creatinine 2.85 H (0.70-1.30) mg/dL Est Cr Clr Drug Dosing 25.64 mL/min Estimated GFR (MDRD) 22 BUN/Creatinine Ratio 11.9 (No establ ref range) Glucose 239 H (70-99) mg/dL Lactic Acid (0.56-1.39) mmol/L Calcium 8.3 L (8.5-10.1) mg/dL Total Bilirubin 0.5 (0.2-1.0) mg/dL AST 13 L (15-37) U/L ALT 16 (16-63) U/L Alkaline Phosphatase 136 H (46-116) U/L Troponin I High Sens 16 (<=76) pg/mL B-Natriuretic Peptide 730 H (0-100) pg/ml Total Protein 7.8 (6.4-8.2) g/dL Albumin 2.7 L (3.4-5.0) g/dL Globulin 5.1 Albumin/Globulin Ratio 0.53 Influenza Type A RNA (NEGATIVE) Influenza Type B RNA (NEGATIVE) SARS-CoV-2 RNA (STACI) (NEGATIVE) 10/16/21 10/16/21 Range/Units 09:45 10:03 WBC (5.0-10.0) 10^3/uL RBC (4.6-6.2) 10^6/uL Hgb (14.0-18.0) g/dL Hct (40.0-54.0) % MCV (80-100) fL MCH (27.0-34.0) pg MCHC (33.0-35.0) g/dL Plt Count (150-450) 10^3/uL Neut % (Auto) (42.2-75.2) % Lymph % (Auto) (20.5-50.1) % Price % (Auto) (2-8) % Eos % (Auto) (1.0-3.0) % Baso % (Auto) (0.0-1.0) % D-Dimer, Quantitative (0-400) ng/mL Sodium (136-145) mmol/L Potassium (3.5-5.1) mmol/L Chloride (98-107) mmol/L Carbon Dioxide (21-32) mmol/L Anion Gap (7-13) mEq/L BUN (7-18) mg/dL Creatinine (0.70-1.30) mg/dL Est Cr Clr Drug Dosing mL/min Estimated GFR (MDRD) BUN/Creatinine Ratio (No establ ref range) Glucose (70-99) mg/dL Lactic Acid 2.33 H* (0.56-1.39) mmol/L Calcium (8.5-10.1) mg/dL Total Bilirubin (0.2-1.0) mg/dL AST (15-37) U/L ALT (16-63) U/L Alkaline Phosphatase (46-116) U/L Troponin I High Sens (<=76) pg/mL B-Natriuretic Peptide (0-100) pg/ml Total Protein (6.4-8.2) g/dL Albumin (3.4-5.0) g/dL Globulin Albumin/Globulin Ratio Influenza Type A RNA Negative (NEGATIVE) Influenza Type B RNA Negative (NEGATIVE) SARS-CoV-2 RNA (STACI) Negative (NEGATIVE) Meds: Medications Discontinued Medications Generic Name Dose Route Start Last Admin Trade Name Freq PRN Reason Stop Dose Admin Furosemide 40 mg 10/16/21 11:16 10/16/21 11:25 Furosemide 40 Mg/4 Ml Vial IVPUSH 10/16/21 11:17 40 mg ONETIME ONE Administration Departure - Departure Time of Disposition: 12:37 Disposition: Admitted As Inpatient 66 Condition: Fair Clinical Impression: Shortness of breath, Elevated brain natriuretic peptide (BNP) level - Discharge Information *PRESCRIPTION DRUG MONITORING PROGRAM REVIEWED*: Not Applicable *COPY OF PRESCRIPTION DRUG MONITORING REPORT IN PATIENT BRANDI: Not Applicable Care Plan Goals: Discussed the patient's history, examination, lab results and treatments with Dr. Peguero. Dr. Peguero accepted the patient for continued evaluation and management as an inpatient at [facility]. Sepsis Event Note (ED) - Evaluation Sepsis Screening Result: No Definite Risk - Focused Exam Vital Signs: Vital Signs Temp Pulse Resp BP Pulse Ox 10/16/21 09:13 97.2 F 74 20 146/69 H 93 L - My Orders Last 24 Hours: My Active Orders 10/16/21 12:31 LACTIC ACID [CHEM] Routine 10/16/21 12:34 Admission Diagnosis [ADT] Urgent Admission Status [Patient Status] [ADT] Routine - Assessment/Plan Last 24 Hours: My Active Orders 10/16/21 12:31 LACTIC ACID [CHEM] Routine 10/16/21 12:34 Admission Diagnosis [ADT] Urgent Admission Status [Patient Status] [ADT] Routine
[2021-10-16 10:48] LABS: CORONAVIRUS COVID-19 NAA NEGATIVE (NEGATIVE)
[2021-10-16] MEDS ORDERED: Furosemide 40 MG/4 ML VIAL IVPUSH ONE (11:16)
--- NOTE | 2021-10-16 11:41 | CR ---
PROCEDURE INFORMATION: Exam: XR Chest Exam date and time: 10/16/2021 11:25 AM Age: 76 years old Clinical indication: Shortness of breath TECHNIQUE: Imaging protocol: XR of the chest. Views: 1 view. COMPARISON: CR Chest 2V 07/05/2020 11:06 AM FINDINGS: Lungs: Shallow inspiration and diffuse atelectasis. Increased diffuse lung attenuation, particularly in the periphery of the lung zones. Pleural spaces: New thickening of the right minor fissure. Unchanged bilateral costophrenic angle blunting. Heart/Mediastinum: Jenna enlarged including enlarged vascular pedicle. Vasculature: Worsened prominence of the pulmonary vessels. Bones/joints: Intact and normally aligned. No suspicious lesion. IMPRESSION: There is evidence of pulmonary edema and small bilateral pleural effusions. Atypical type infection is not excluded given the increased ground-glass opacification in the periphery of both lungs.
--- NOTE | 2021-10-16 13:51 | PCM.HP ---
H&P History of Present Illness - General Date of Service: 10/16/21 Admit Problem/Dx: Admission Diagnosis/Problem Admission Diagnosis/Problem Short of breath on exertion Source of Information: Patient, Old Records History Limitations: Reports: No Limitations - History of Present Illness Initial Comments - Free Text/Narative: Mr. Gunter a 76 y.o.malewith a history of stage IIIB chronic kidney disease, and hypertension, type 2 diabetes, hyperlipidemia, combined heart failure( Systolic and diastolic) BPH, mood disorder, history of CVA , today ( 10/16/21) he was was brought to the ED by his family due to increased shortness of breath. The patient reports his shortness of breath started over 1 week ago. The patient reports he has had a cough throughout the past week. The patient reports he has not been able to walk as far as previously due to struggling for oxygen. The patient reports he does have a CPAP, but has not been using The patient's son reports the patient's oxygen level has been 86% at home. In the ER is tested for influenza and is negative for both A and B, is negative for Covid. In ER he had chest x-ray done and the impression there is evidence of pulmonary edema and small bilateral pleural effusions atypical type infection is not excluded given the increased groundglass opacities in the periphery of both lungs. Onset of Symptoms: Reports: Gradual Duration of Symptoms: Reports: Getting Worse Worsens with: Reports: Movement - Related Data Allergies/Adverse Reactions: Allergies Allergy/AdvReac Type Severity Reaction Status Date / Time clindamycin Allergy Rash Verified 10/16/21 13:09 Home Medications: Home Meds Clopidogrel [Plavix] 75 mg PO BEDTIME 02/05/15 [History] Dorzolamide HCl/Timolol Maleat [Dorzolamide-Timolol Eye Drops] 1 drop EYEBOTH BID 02/05/15 [History] Folic Acid 2 mg PO DAILY 02/05/15 [History] Insulin Aspart [NovoLOG] 10 units SQ TIDMEALS 02/05/15 [History] Insulin Glarg,Human.Rec.Analog [Lantus Solostar] 34 units SQ BID 02/05/15 [H istory] Latanoprost [Xalatan 0.005% Ophth Soln] 1 drop EYEBOTH BEDTIME 02/05/15 [History] Loperamide [Imodium] 2 mg PO ASDIRECTED PRN 02/05/15 [History] Omeprazole 20 mg PO BID 02/05/15 [History] Tamsulosin [Flomax] 0.8 mg PO BEDTIME 02/05/15 [History] Acetaminophen 975 mg PO Q6H PRN 10/16/21 [History] Amiodarone [Cordarone] 200 mg PO DAILY 10/16/21 [History] Apixaban [Eliquis] 5 mg PO BID 10/16/21 [History] Aspirin 81 mg PO DAILY 10/16/21 [History] Cetirizine [ZyrTEC] 10 mg PO DAILY 10/16/21 [History] Cholecalciferol (Vitamin D3) [Vitamin D3] 400 unit PO DAILY 10/16/21 [History] Dextromethorphan/Benzocaine [Cepacol Sorethroat-Cough Ena] 1 each PO Q2H PRN 10/16/21 [History] Diclofenac Sodium [Voltaren 1% Gel] 1 applic TOP DAILY 10/16/21 [History] Finasteride [Proscar] 5 mg PO DAILY 10/16/21 [History] Fluticasone Propionate [Flonase] 1 spray NASBOTH BID 10/16/21 [History] Isosorbide Mononitrate [Isosorbide Mononitrate ER] 30 mg PO DAILY 10/16/21 [History] Lidocaine 2% [Xylocaine 2% Jelly] 1 applic TOP QID PRN 10/16/21 [History] Sertraline [Zoloft] 50 mg PO DAILY 10/16/21 [History] Silver Sulfadiazine [Silvadene 1% Cream 50 GM] 1 applic TOP ASDIRECTED 10/16/21 [History] Torsemide 40 mg PO DAILY 10/16/21 [History] allopurinoL [Zyloprim] 100 mg PO DAILY 10/16/21 [History] amLODIPine [Norvasc] 7.5 mg PO DAILY 10/16/21 [History] atorvaSTATin [Lipitor] 40 mg PO BEDTIME 10/16/21 [History] carvediloL [Carvedilol] 6.25 mg PO BID 10/16/21 [History] hydrALAZINE [Apresoline] 15 mg PO TID 10/16/21 [History] predniSONE 20 mg PO DAILY PRN 10/16/21 [History] Past Medical History HEENT History: Reports: Other (See Below) Other HEENT History: proliferative retinopathy, Cardiovascular History: Reports: Afib, CAD, High Cholesterol, Hypertension, CA Respiratory History: Reports: COPD, Sleep Apnea Gastrointestinal History: Reports: Other (See Below) Other Gastrointestinal History: Colon CA, Renal cell ca Genitourinary History: Reports: Chronic Renal Insuffiency Other Genitourinary History: CKD stage 3 Musculoskeletal History: Reports: Back Pain, Chronic Neurological History: Reports: Neuropathy, Diabetic, Neuropathy, Peripheral Psychiatric History: Reports: Depression Endocrine/Metabolic History: Reports: Diabetes, Type II, Obesity/BMI 30+ Hematologic History: Reports: Anemia, Iron Deficiency Immunologic History: Reports: None Oncologic (Cancer) History: Reports: Colon Dermatologic History: Reports: None - Infectious Disease History Infectious Disease History: Reports: Chicken Pox, Measles, Mumps - Past Surgical History Head Surgeries/Procedures: Reports: None HEENT Surgical History: Reports: None Cardiovascular Surgical History: Reports: None Respiratory Surgical History: Reports: None GI Surgical History: Reports: Appendectomy, Cholecystectomy, Colonoscopy Male Surgical History: Reports: None Endocrine Surgical History: Reports: None Neurological Surgical History: Reports: None Musculoskeletal Surgical History: Reports: None Oncologic Surgical History: Reports: None Dermatological Surgical History: Reports: None Social & Family History - Family History Family Medical History: No Pertinent Family History - Tobacco Use Tobacco Use Status *Q: Heavy Tobacco User Years of Tobacco use: 40 Packs/Tins Daily: 0 - Caffeine Use Caffeine Use: Reports: Soda - Recreational Drug Use Recreational Drug Use: No H&P Review of Systems - Review of Systems: Review Of Systems: See Below General: Reports: Weakness. Denies: Fever, Chills HEENT: Denies: Headaches, Sinus Congestion, Sore Throat, Visual Changes Pulmonary: Reports: Shortness of Breath, Cough, Sputum. Denies: Wheezing Cardiovascular: Denies: Chest Pain, Edema, Lightheadedness Gastrointestinal: Denies: Abdominal Pain, Diarrhea, Nausea, Vomiting Genitourinary: Denies: Dysuria, Frequency, Burning, Flank Pain Musculoskeletal: Denies: Neck Pain, Shoulder Pain, Leg Pain Skin: Denies: Cyanosis, Bruising, Pruritis, Rash Psychiatric: Denies: Confusion, Anxiety Neurological: Denies: Confusion, Numbness, Tremors, Weakness Hematologic/Lymphatic: Reports: Anemia Immunologic: Denies: No Symptoms Exam - Exam Exam: See Below - Vital Signs Vital Signs: Last Vital Signs Temp 36.4 C 10/16/21 13:07 Pulse 68 10/16/21 13:07 Resp 20 10/16/21 13:07 BP 134/64 10/16/21 13:07 Pulse Ox 94 L 10/16/21 13:07 Weight: 135.216 kg - Exam Quality Assessment: Supplemental Oxygen, DVT Prophylaxis. No: Central Line/PICC, Urinary Catheter General: Alert, Oriented, Cooperative, Mild Distress HEENT: Conjunctiva Clear, EOMI, Mucosa Moist & [place], Pupils Equal Neck: Supple. No: Lymphadenopathy, JVD, Thyromegaly Lungs: Clear to Auscultation, Normal Respiratory Effort, Crackles Cardiovascular: Regular Rate, Regular Rhythm, Systolic Murmur GI/Abdominal Exam: Normal Bowel Sounds, Soft, Non-Tender. No: Rigid, Rebound (Male) Exam: Deferred Rectal (Males) Exam: Deferred Back Exam: Normal Inspection Extremities: Normal Inspection, Pedal Edema Skin: Warm, Dry, Intact Neurological: Cranial Nerves Intact Neuro Extensive - Mental Status: Alert, Oriented x3, Normal Mood/Affect, Normal Cognition, Memory Intact Neuro Extensive - Motor, Sensory, Reflexes: CN II-XII Intact Psychiatric: Alert, Normal Affect, Normal Mood - Patient Data Lab Results Last 24 hrs: Laboratory Results - last 24 hr 10/16/21 10/16/21 10/16/21 Range/Units 09:20 09:20 09:40 WBC 7.0 (5.0-10.0) 10^3/uL RBC 3.83 L (4.6-6.2) 10^6/uL Hgb 10.4 L (14.0-18.0) g/dL Hct 34.3 L (40.0-54.0) % MCV 89.6 (80-100) fL MCH 27.2 (27.0-34.0) pg MCHC 30.3 L (33.0-35.0) g/dL Plt Count 260 (150-450) 10^3/uL Neut % (Auto) 73.3 (42.2-75.2) % Lymph % (Auto) 13.5 L (20.5-50.1) % Henry % (Auto) 8.5 H (2-8) % Eos % (Auto) 4.4 H (1.0-3.0) % Baso % (Auto) 0.3 (0.0-1.0) % D-Dimer, Quantitative 740 H (0-400) ng/mL Sodium 143 (136-145) mmol/L Potassium 4.3 (3.5-5.1) mmol/L Chloride 103 (98-107) mmol/L Carbon Dioxide 27 (21-32) mmol/L Anion Gap 17.3 H (7-13) mEq/L BUN 34 H (7-18) mg/dL Creatinine 2.85 H (0.70-1.30) mg/dL Est Cr Clr Drug Dosing 25.64 mL/min Estimated GFR (MDRD) 22 BUN/Creatinine Ratio 11.9 (No establ ref range) Glucose 239 H (70-99) mg/dL Lactic Acid (0.56-1.39) mmol/L Calcium 8.3 L (8.5-10.1) mg/dL Total Bilirubin 0.5 (0.2-1.0) mg/dL AST 13 L (15-37) U/L ALT 16 (16-63) U/L Alkaline Phosphatase 136 H (46-116) U/L Troponin I High Sens 16 (<=76) pg/mL B-Natriuretic Peptide 730 H (0-100) pg/ml Total Protein 7.8 (6.4-8.2) g/dL Albumin 2.7 L (3.4-5.0) g/dL Globulin 5.1 Albumin/Globulin Ratio 0.53 Influenza Type A RNA (NEGATIVE) Influenza Type B RNA (NEGATIVE) SARS-CoV-2 RNA (STACI) (NEGATIVE) 10/16/21 10/16/21 Range/Units 09:45 10:03 WBC (5.0-10.0) 10^3/uL RBC (4.6-6.2) 10^6/uL Hgb (14.0-18.0) g/dL Hct (40.0-54.0) % MCV (80-100) fL MCH (27.0-34.0) pg MCHC (33.0-35.0) g/dL Plt Count (150-450) 10^3/uL Neut % (Auto) (42.2-75.2) % Lymph % (Auto) (20.5-50.1) % Henry % (Auto) (2-8) % Eos % (Auto) (1.0-3.0) % Baso % (Auto) (0.0-1.0) % D-Dimer, Quantitative (0-400) ng/mL Sodium (136-145) mmol/L Potassium (3.5-5.1) mmol/L Chloride (98-107) mmol/L Carbon Dioxide (21-32) mmol/L Anion Gap (7-13) mEq/L BUN (7-18) mg/dL Creatinine (0.70-1.30) mg/dL Est Cr Clr Drug Dosing mL/min Estimated GFR (MDRD) BUN/Creatinine Ratio (No establ ref range) Glucose (70-99) mg/dL Lactic Acid 2.33 H* (0.56-1.39) mmol/L Calcium (8.5-10.1) mg/dL Total Bilirubin (0.2-1.0) mg/dL AST (15-37) U/L ALT (16-63) U/L Alkaline Phosphatase (46-116) U/L Troponin I High Sens (<=76) pg/mL B-Natriuretic Peptide (0-100) pg/ml Total Protein (6.4-8.2) g/dL Albumin (3.4-5.0) g/dL Globulin Albumin/Globulin Ratio Influenza Type A RNA Negative (NEGATIVE) Influenza Type B RNA Negative (NEGATIVE) SARS-CoV-2 RNA (STACI) Negative (NEGATIVE) Result Diagrams: 10/16/21 09:20 10/16/21 09:20 - Problem List (1) Chronic kidney disease (CKD), stage IV (severe) SNOMED Code(s): 819963152 ICD Code: N18.4 - CHRONIC KIDNEY DISEASE, STAGE 4 (SEVERE) Status: Acute Current Visit: No (2) Congestive heart failure SNOMED Code(s): 58330794 ICD Code: I50.9 - HEART FAILURE, UNSPECIFIED Status: Acute Current Visit: No Qualifiers: Heart failure type: unspecified Heart failure chronicity: acute on chronic Qualified Code(s): I50.9 - Heart failure, unspecified (3) Hypertension SNOMED Code(s): 05399679 ICD Code: I10 - ESSENTIAL (PRIMARY) HYPERTENSION Status: Acute Current Visit: No (4) Pneumonia SNOMED Code(s): 201586998 ICD Code: J18.9 - PNEUMONIA, UNSPECIFIED ORGANISM Status: Acute Current Visit: No Qualifiers: Pneumonia type: due to unspecified organism Laterality: unspecified laterality Lung location: unspecified part of lung Qualified Code(s): J18.9 - Pneumonia, unspecified organism Problem List Initiated/Reviewed/Updated: Yes Orders Last 24hrs: Active Orders 24 hr Category Date Time Status Admission Diagnosis [ADT] Urgent ADT 10/16/21 12:34 Ordered Admission Status [Patient Status] [ADT] Routine ADT 10/16/21 12:34 Active LACTIC ACID [CHEM] Routine Lab 10/16/21 12:31 Ordered Assessment/Plan Comment:: Mr. Rucker is a 76-year-old male presented to ED with increased shortness of breath which is going on for couple of days but progressively getting worse, he has past medical history which is significant for hypertension, diabetes type 2 insulin-dependent, dependent edema and chronic kidney disease stage IV with baseline creatinine range from 2.4 to 3.6 mg/dL. Impression and plan: 1. Increased shortness of breath: I reviewed the chest x-ray done which showed bilateral patchy opacities and pulmonary edema. I am going to start him on Lasix at 60 mg IV 2 times a day. Continue I/O recording and daily weights. I have discussed with the patient that he has high degree of renal disease to begin with and with diuresis there could be increasing creatinine but will discuss about the possibility of going into dialysis if things do not improve or if there is a significant drop in renal function. The patient is on lisinopril and I am going to stop the lisinopril due to aggressive diuresis. 2. Hypertension: His blood pressure is acceptable I will continue him with the home medication, Coreg at 6.25 twice a day and hydralazine 50 mg 3 times a day. 3. Diabetes type 2 insulin-dependent: The patient has longstanding diabetes but I do not know the status of his diabetes control he gets followed at the [place] [facility] and will get more data from [place] to see how the diabetes controlled he has over a prolonged. 4. Edema of extremities: He has bilateral lower extremity fluid retention and I am going to start him on Lasix 60 mg IV 2 times a day, check his weight on a daily basis and also check I and O recording for every shift. 5. Possible lower base pneumonia: He has significant opacities could not be excluded the pneumonia, will start him on azithromycin and ceftriaxone. 6. Dyslipidemia we will continue him with his home with statins. GI prophylaxis: We will start him on Protonix 40 mg p.o. daily with his breakfast. DVT prophylaxis: The patient is on Eliquis. CODE STATUS: I discussed with patient about his CODE STATUS and he is full code. This dictation is done via [employer] dictation system.
[2021-10-16] MEDS ORDERED: Docusate Sodium 100 MG Cap PO PRN (14:42)
[2021-10-16] MEDS ORDERED: Acetaminophen 325 MG Tab PO PRN (14:42)
[2021-10-16] MEDS ORDERED: Loperamide 2 MG Cap PO PRN (14:47)
[2021-10-16] MEDS ORDERED: Benzocaine/Cetylpyridinium/Menthol Lozenge MUCMEM PRN (14:47)
[2021-10-16] MEDS ORDERED: Lidocaine 2% Jelly 5 ML Tube TOP PRN (14:47)
[2021-10-16] MEDS ORDERED: Silver Sulfadiazine 1% Crm 50 GM Tube TOP SCH (15:00)
[2021-10-16] MEDS ORDERED: cefTRIAXone 1 GM Vial IM SCH (15:00)
[2021-10-16] MEDS: Furosemide 100 MG/10 ML SDV IVPUSH SCH (16:05)
[2021-10-16] MEDS: Piperacillin/Tazobactam 3.375 GM in Sodium Chloride 0.9% 100 ML IV SCH (16:05)
[2021-10-16] MEDS: cefTRIAXone 1 GM in Sodium Chloride 0.9% 50 ML IV SCH (16:43)
[2021-10-16] MEDS: Insulin Lispro 100 Units/ML 3 ML Vial SUBCUT SCH (17:53)
[2021-10-16] MEDS: Carvedilol 6.25 MG Tab PO SCH (17:54)
[2021-10-16] MEDS: Omeprazole 20 MG Cap.CR PO SCH (21:44)
[2021-10-16] MEDS: Tamsulosin 0.4 MG Cap.ER PO SCH (21:44)
[2021-10-16] MEDS: Clopidogrel 75 MG Tab PO SCH (21:45)
[2021-10-16] MEDS: atorvaSTATin 20 MG Tab PO SCH (21:45)
[2021-10-16] MEDS: Apixaban 5 MG Tab PO SCH (21:46)
[2021-10-16] MEDS: Insulin Glarg,Human.Rec.Analog 100 Unit/ML SUBCUT SCH (21:47)
[2021-10-16] MEDS: Dorzolamide/Timolol 2%-0.5% Ophth Soln 10 ML Bottle EYEBOTH SCH (21:50)
[2021-10-16] MEDS: Latanoprost 0.005% Ophth Soln 2.5 ML Bottle EYEBOTH SCH (21:52)
[2021-10-17] MEDS: Piperacillin/Tazobactam 3.375 GM in Sodium Chloride 0.9% 100 ML IV SCH ×2 (03:09→14:56)
[2021-10-17 06:37] LABS: ANION GAP 12.9 mEq/L (7-13)
[2021-10-17] MEDS ORDERED: Enoxaparin 40 MG/0.4 ML Syringe SUBCUT SCH (09:00)
[2021-10-17] MEDS ORDERED: DICLOFENAC SODIUM TOP SCH (09:00)
[2021-10-17] MEDS: Folic Acid 1 MG Tab PO SCH (10:26)
[2021-10-17] MEDS: Omeprazole 20 MG Cap.CR PO SCH ×2 (10:27→20:34)
[2021-10-17] MEDS: Sertraline 50 MG Tab PO SCH (10:27)
[2021-10-17] MEDS: Isosorbide Mononitrate 30 MG Tab.ER PO SCH (10:27)
[2021-10-17] MEDS: Amiodarone 200 MG Tab PO SCH (10:28)
[2021-10-17] MEDS: Finasteride 5 MG Tab PO SCH (10:28)
[2021-10-17] MEDS: Apixaban 5 MG Tab PO SCH ×2 (10:28→20:36)
[2021-10-17] MEDS: Allopurinol 100 MG Tab PO SCH (10:28)
[2021-10-17] MEDS: amLODIPine 5 MG Tab PO SCH (10:30)
[2021-10-17] MEDS: Dorzolamide/Timolol 2%-0.5% Ophth Soln 10 ML Bottle EYEBOTH SCH ×2 (10:32→20:34)
[2021-10-17] MEDS: Insulin Lispro 100 Units/ML 3 ML Vial SUBCUT SCH ×3 (10:36→18:14)
[2021-10-17] MEDS: Aspirin 81 MG Tab.Chew PO SCH (10:37)
[2021-10-17] MEDS: Insulin Glarg,Human.Rec.Analog 100 Unit/ML SUBCUT SCH ×2 (10:57→20:35)
[2021-10-17] MEDS: Carvedilol 6.25 MG Tab PO SCH ×2 (10:59→18:16)
[2021-10-17] MEDS: Furosemide 100 MG/10 ML SDV IVPUSH SCH ×4 (11:18→20:36)
--- NOTE | 2021-10-17 12:45 | PCM.PN ---
- General Info Date of Service: 10/17/21 Admission Dx/Problem (Free Text): Admission Diagnosis/Problem Admission Diagnosis/Problem Short of breath on exertion Functional Status: Reports: Tolerating Diet, Ambulating, Urinating - Review of Systems General: Reports: Weakness, Appetite (good). Denies: Fever, Chills HEENT: Denies: Headaches, Sore Throat, Visual Changes Pulmonary: Reports: Shortness of Breath. Denies: Cough, Wheezing Cardiovascular: Reports: Edema. Denies: Chest Pain, Lightheadedness Gastrointestinal: Denies: Abdominal Pain, Difficulty Swallowing, Nausea, Vomiting Genitourinary: Denies: Dysuria, Frequency, Burning, Urgency, Hematuria, Flank Pain Musculoskeletal: Denies: Neck Pain, Leg Pain, Joint Swelling Skin: Denies: Jaundice, Bruising, Pruritis, Rash Neurological: Denies: Confusion, Dizziness, Numbness, Tremors Psychiatric: Reports: Depression. Denies: Anxiety - Patient Data Vitals - Most Recent: Last Vital Signs Temp 36.6 C 10/17/21 08:00 Pulse 70 10/17/21 10:59 Resp 18 10/17/21 08:00 BP 147/59 H 10/17/21 10:59 Pulse Ox 96 10/17/21 08:00 Weight - Most Recent: 135.216 kg I&O - Last 24 Hours: Intake & Output 10/16/21 10/17/21 10/17/21 22:59 06:59 14:59 Intake Total 300 Balance 300 Lab Results Last 24 Hours: Laboratory Results - last 24 hr 10/16/21 10/16/21 10/16/21 Range/Units 14:35 16:57 21:01 Sodium (136-145) mmol/L Potassium (3.5-5.1) mmol/L Chloride (98-107) mmol/L Carbon Dioxide (21-32) mmol/L Anion Gap (7-13) mEq/L BUN (7-18) mg/dL Creatinine (0.70-1.30) mg/dL Est Cr Clr Drug Dosing mL/min Estimated GFR (MDRD) Glucose (70-99) mg/dL POC Glucose 175 H 153 H (70-99) mg/dL Lactic Acid 2.3 H* (0.4-2.0) mmol/L Calcium (8.5-10.1) mg/dL 10/17/21 10/17/21 10/17/21 Range/Units 06:05 08:11 11:55 Sodium 144 (136-145) mmol/L Potassium 3.9 (3.5-5.1) mmol/L Chloride 105 (98-107) mmol/L Carbon Dioxide 30 (21-32) mmol/L Anion Gap 12.9 (7-13) mEq/L BUN 36 H (7-18) mg/dL Creatinine 2.78 H (0.70-1.30) mg/dL Est Cr Clr Drug Dosing 26.28 mL/min Estimated GFR (MDRD) 22 Glucose 76 (70-99) mg/dL POC Glucose 75 106 H (70-99) mg/dL Lactic Acid (0.4-2.0) mmol/L Calcium 8.4 L (8.5-10.1) mg/dL Med Orders - Current: Current Medications Acetaminophen (Acetaminophen 325 Mg Tab) 650 mg PO Q4H PRN PRN Reason: Pain (mild 1-3 )/fever Allopurinol (Allopurinol 100 Mg Tab) 100 mg PO DAILY [facility] Last Admin: 10/17/21 10:28 Dose: 100 mg Documented by: Amiodarone HCl (Amiodarone 200 Mg Tab) 200 mg PO DAILY [facility] Last Admin: 10/17/21 10:28 Dose: 200 mg Documented by: Amlodipine Besylate (Amlodipine 5 Mg Tab) 7.5 mg PO DAILY [facility] Last Admin: 10/17/21 10:30 Dose: 7.5 mg Documented by: Apixaban (Apixaban 5 Mg Tab) 5 mg PO BID [facility] Last Admin: 10/17/21 10:28 Dose: 5 mg Documented by: Aspirin (Aspirin 81 Mg Tab.Chew) 81 mg PO DAILY [facility] Last Admin: 10/17/21 10:37 Dose: 81 mg Documented by: Atorvastatin Calcium (Atorvastatin 20 Mg Tab) 40 mg PO BEDTIME [facility] Last Admin: 10/16/21 21:45 Dose: 40 mg Documented by: Benzocaine/Menthol (Benzocaine/Cetylpyridinium/Menthol Lozenge) 1 lozenge MUCMEM Q2H PRN PRN Reason: Sore Throat Carvedilol (Carvedilol 6.25 Mg Tab) 6.25 mg PO BIDMEALS [facility] Last Admin: 10/17/21 10:59 Dose: 6.25 mg Documented by: Clopidogrel Bisulfate (Clopidogrel 75 Mg Tab) 75 mg PO BEDTIME [facility] Last Admin: 10/16/21 21:45 Dose: 75 mg Documented by: Docusate Sodium (Docusate Sodium 100 Mg Cap) 100 mg PO DAILY PRN PRN Reason: Constipation Dorzolamide/Timolol (Dorzolamide/Timolol 2%-0.5% Ophth Soln 10 Ml Bottle) 0 ml EYEBOTH BID [facility] Last Admin: 10/17/21 10:32 Dose: 1 drop Documented by: Finasteride (Finasteride 5 Mg Tab) 5 mg PO DAILY [facility] Last Admin: 10/17/21 10:28 Dose: 5 mg Documented by: Folic Acid (Folic Acid 1 Mg Tab) 2 mg PO DAILY [facility] Last Admin: 10/17/21 10:26 Dose: 2 mg Documented by: Furosemide (Furosemide 100 Mg/10 Ml Sdv) 60 mg IVPUSH TID [facility] Last Admin: 10/17/21 11:18 Dose: 60 mg Documented by: Piperacillin Sod/Tazobactam (Sod 3.375 gm/ Sodium Chloride) 100 mls @ 200 mls/hr IV Q12H [facility] Last Admin: 10/17/21 03:09 Dose: 200 mls/hr Documented by: Ceftriaxone Sodium 1 gm/ (Sodium Chloride) 50 mls @ 100 mls/hr IV Q24H [facility] Last Admin: 10/16/21 16:43 Dose: 100 mls/hr Documented by: Insulin Glargine (Insulin Glarg,Human.Rec.Analog 100 Unit/Ml) 34 unit SUBCUT BID [facility] Last Admin: 10/17/21 10:57 Dose: Not Given Documented by: Insulin Human Lispro (Insulin Lispro 100 Units/Ml 3 Ml Vial) 10 unit SUBCUT TIDMEALS [facility] Last Admin: 10/17/21 10:36 Dose: Not Given Documented by: Isosorbide Mononitrate (Isosorbide Mononitrate 30 Mg Tab.Er) 30 mg PO DAILY [facility] Last Admin: 10/17/21 10:27 Dose: 30 mg Documented by: Latanoprost (Latanoprost 0.005% Ophth Soln 2.5 Ml Bottle) 0 ml EYEBOTH BEDTIME [facility] Last Admin: 10/16/21 21:52 Dose: 1 drop Documented by: Lidocaine HCl (Lidocaine 2% Jelly 5 Ml Tube) 0 ml TOP QID PRN PRN Reason: Pain Loperamide HCl (Loperamide 2 Mg Cap) 2 mg PO ASDIRECTED PRN PRN Reason: Diarrhea Cetirizine [Zyrtec] (10 Mg Tablet) 10 mg PO DAILY [facility] Diclofenac Sodium [ Voltaren 1% Gel] 100 Gm Tube 0 applic TOP DAILY [facility] Hydralazine [ Apresoline] 10 Mg Tablet 15 mg PO TID [facility] Omeprazole (Omeprazole 20 Mg Cap.Cr) 20 mg PO BID [facility] Last Admin: 10/17/21 10:27 Dose: 20 mg Documented by: Sertraline HCl (Sertraline 50 Mg Tab) 50 mg PO DAILY [facility] Last Admin: 10/17/21 10:27 Dose: 50 mg Documented by: Silver Sulfadiazine (Silver Sulfadiazine 1% Crm 50 Gm Tube) 0 gm TOP ASDIRECTED [facility] Tamsulosin HCl (Tamsulosin 0.4 Mg Cap.Er) 0.8 mg PO BEDTIME [facility] Last Admin: 10/16/21 21:44 Dose: 0.8 mg Documented by: Discontinued Medications Ceftriaxone Sodium (Ceftriaxone 1 Gm Vial) 1 gm IM Q24H [facility] Enoxaparin Sodium (Enoxaparin 40 Mg/0.4 Ml Syringe) 40 mg SUBCUT DAILY [facility] Furosemide (Furosemide 40 Mg/4 Ml Vial) 40 mg IVPUSH ONETIME ONE Stop: 10/16/21 11:17 Last Admin: 10/16/21 11:25 Dose: 40 mg Documented by: Furosemide (Furosemide 100 Mg/10 Ml Sdv) 60 mg IVPUSH BIDDIURETIC [facility] Last Admin: 10/17/21 11:26 Dose: Not Given Documented by: - Exam Quality Assessment: Supplemental Oxygen. No: Central Line/PICC, Urine Catheter General: Alert, Oriented, Cooperative, No Acute Distress HEENT: Pupils Equal, EOMI, Mucous Membr. Moist/[place] Neck: Supple, No JVD, No Thyromegaly Lungs: Clear to Auscultation, Normal Respiratory Effort, Decreased Breath Sounds, Crackles Cardiovascular: Regular Rate, Regular Rhythm, Murmurs GI/Abdominal Exam: Normal Bowel Sounds, Non-Tender, No Distention. No: Rigid, Rebound (Male) Exam: Deferred Back Exam: Normal Inspection Extremities: Normal Inspection, Pedal Edema Skin: Warm, Dry, Intact Neurological: No New Focal Deficit Psy/Mental Status: Alert, Normal Affect, Normal Mood - Patient Data Lab Results Last 24 hrs: Laboratory Results - last 24 hr 10/16/21 10/16/21 10/16/21 Range/Units 14:35 16:57 21:01 Sodium (136-145) mmol/L Potassium (3.5-5.1) mmol/L Chloride (98-107) mmol/L Carbon Dioxide (21-32) mmol/L Anion Gap (7-13) mEq/L BUN (7-18) mg/dL Creatinine (0.70-1.30) mg/dL Est Cr Clr Drug Dosing mL/min Estimated GFR (MDRD) Glucose (70-99) mg/dL POC Glucose 175 H 153 H (70-99) mg/dL Lactic Acid 2.3 H* (0.4-2.0) mmol/L Calcium (8.5-10.1) mg/dL 10/17/21 10/17/21 10/17/21 Range/Units 06:05 08:11 11:55 Sodium 144 (136-145) mmol/L Potassium 3.9 (3.5-5.1) mmol/L Chloride 105 (98-107) mmol/L Carbon Dioxide 30 (21-32) mmol/L Anion Gap 12.9 (7-13) mEq/L BUN 36 H (7-18) mg/dL Creatinine 2.78 H (0.70-1.30) mg/dL Est Cr Clr Drug Dosing 26.28 mL/min Estimated GFR (MDRD) 22 Glucose 76 (70-99) mg/dL POC Glucose 75 106 H (70-99) mg/dL Lactic Acid (0.4-2.0) mmol/L Calcium 8.4 L (8.5-10.1) mg/dL Result Diagrams: 10/16/21 09:20 10/17/21 06:05 Sepsis Event Note - Evaluation Sepsis Screening Result: No Definite Risk - Focused Exam Vital Signs: Vital Signs Temp Pulse Pulse Resp BP BP Pulse Ox 10/17/21 10:59 70 147/59 H 10/17/21 10:30 147/59 H 10/17/21 10:27 147/59 H 10/17/21 08:00 36.6 C 70 18 147/59 H 96 10/17/21 04:00 37.3 C 69 20 134/57 L 97 - Problem List & Annotations (1) Chronic kidney disease (CKD), stage IV (severe) SNOMED Code(s): 468043386 Code(s): N18.4 - CHRONIC KIDNEY DISEASE, STAGE 4 (SEVERE) Status: Acute Current Visit: No (2) Congestive heart failure SNOMED Code(s): 53774853 Code(s): I50.9 - HEART FAILURE, UNSPECIFIED Status: Acute Current Visit: No Qualifiers: Heart failure type: unspecified Heart failure chronicity: acute on chronic Qualified Code(s): I50.9 - Heart failure, unspecified (3) Hypertension SNOMED Code(s): 70192856 Code(s): I10 - ESSENTIAL (PRIMARY) HYPERTENSION Status: Acute Current Visit: No (4) Pneumonia SNOMED Code(s): 657614287 Code(s): J18.9 - PNEUMONIA, UNSPECIFIED ORGANISM Status: Acute Current Visit: No Qualifiers: Pneumonia type: due to unspecified organism Laterality: unspecified laterality Lung location: unspecified part of lung Qualified Code(s): J18.9 - Pneumonia, unspecified organism - Problem List Review Problem List Initiated/Reviewed/Updated: Yes - My Orders Last 24 Hours: My Active Orders 10/16/21 Lunch Consistent Carbohydrate Diet [DIET] 10/16/21 14:42 Patient Status [ADT] Routine Up With Assistance [RC] ASDIRECTED Vital Signs [RC] 00,04,08,12,16,20 Acetaminophen [TylenoL] 650 mg PO Q4H PRN Docusate Sodium [Colace] 100 mg PO DAILY PRN DVT/VTE Prophylaxis Reflex [OM.PC] Routine Resuscitation Status Routine 10/16/21 14:44 Antiembolic Devices [RC] 08,20 Oxygen Therapy [RC] .PRN Pulse Oximetry [RC] .PRN VTE/DVT Education [RC] PER UNIT ROUTINE 10/16/21 14:47 Benzocaine/Cetylpyrd/Menthol [Cepacol Sore Throat] 1 lozenge MUCMEM Q2H PRN Lidocaine 2% [Xylocaine 2% Jelly] 0 ml TOP QID PRN Loperamide [Imodium] 2 mg PO ASDIRECTED PRN 10/16/21 15:00 Piperacillin/Tazobactam [Zosyn] 3.375 gm Sodium Chloride 0.9% [Normal Saline AdvBag] 100 ml IV Q12H Silver Sulfadiazine [Silvadene 1% Cream 50 GM] 0 gm TOP ASDIRECTED 10/16/21 16:00 cefTRIAXone [Rocephin] 1 gm Sodium Chloride 0.9% [Normal Saline AdvBag] 50 ml IV Q24H 10/16/21 16:23 POC Glucose [Blood Glucose Check, Bedside] [RC] QIDACANDBED 10/16/21 17:00 Insulin Lispro [HumaLOG] 10 unit SUBCUT TIDMEALS 10/16/21 18:00 carvediloL [Coreg] 6.25 mg PO BIDMEALS 10/16/21 21:00 Apixaban [Eliquis] 5 mg PO BID Clopidogrel [Plavix] 75 mg PO BEDTIME Dorzolamide/Timolol [Cosopt 2%-0.5% Ophth Soln] 0 ml EYEBOTH BID Insulin Glarg,Human.Rec.Analog [LantUS] 34 unit SUBCUT BID Latanoprost [Xalatan 0.005% Ophth Soln] 0 ml EYEBOTH BEDTIME Omeprazole 20 mg PO BID Tamsulosin [Flomax] 0.8 mg PO BEDTIME atorvaSTATin [Lipitor] 40 mg PO BEDTIME hydrALAZINE [Apresoline] 15 mg PO TID 10/17/21 09:00 Amiodarone [Cordarone] 200 mg PO DAILY Aspirin 81 mg PO DAILY Cetirizine [ZyrTEC] 10 mg PO DAILY Diclofenac Sodium [Voltaren 1% Gel] 0 applic TOP DAILY Finasteride [Proscar] 5 mg PO DAILY Folic Acid 2 mg PO DAILY Isosorbide Mononitrate [Imdur] 30 mg PO DAILY Sertraline [Zoloft] 50 mg PO DAILY allopurinoL [Zyloprim] 100 mg PO DAILY amLODIPine [Norvasc] 7.5 mg PO DAILY 10/17/21 09:43 Intake and Output Strict [RC] DAILY 10/17/21 09:44 Daily Weight [Height and Weight] [RC] DAILY 10/17/21 10:00 Furosemide [Lasix] 60 mg IVPUSH TID - Plan Plan:: Mr. Rucker is a 76-year-old male presented to ED with increased shortness of breath which is going on for couple of days but progressively getting worse, he has past medical history which is significant for hypertension, diabetes type 2 insulin-dependent, dependent edema and chronic kidney disease stage IV with baseline creatinine range from 2.4 to 3.6 mg/dL. Impression and plan: 1. Increased shortness of breath: I reviewed the chest x-ray done which showed bilateral patchy opacities and pulmonary edema. -Will change Lasix to 60 mg IV 3 times a day [ was at 60 mg IV 2 times a day.] Continue I/O recording and daily weights. I have discussed with the patient that he has high degree of renal disease to begin with and with diuresis there could be increase in creatinine but will discuss about the possibility of going into dialysis if things do not improve or if there is a significant drop in renal function or if the response to diuretics is poor . The patient is on lisinopril and I have stopped lisinopril as I plan for aggressive diuresis. 2. Hypertension: His blood pressure is acceptable I will continue him with the home medication, Coreg at 6.25 twice a day and hydralazine 50 mg 3 times a day. 3. Diabetes type 2 insulin-dependent: The patient has longstanding diabetes but I do not know the status of his diabetes control he gets followed at [facility] and will get more data from [facility] to see how the diabetes controlled he has over a prolonged. 4. Edema of extremities: He has bilateral lower extremity fluid retention and I am going to change Lasix to 60 mg IV TID [ was at 60 mg IV 2 times a day], check his weight on a daily basis and also check I and O recording for every shift. 5. Possible lower base pneumonia: He has significant opacities could not be excluded the pneumonia, will start him on azithromycin and ceftriaxone. 6. Dyslipidemia we will continue him with his home with statins. GI prophylaxis: We will start him on Protonix 40 mg p.o. daily with his breakfast. DVT prophylaxis: The patient is on Eliquis. CODE STATUS: I discussed with patient about his CODE STATUS and he is full code. This dictation is done via [employer] system.
[2021-10-17] MEDS: cefTRIAXone 1 GM in Sodium Chloride 0.9% 50 ML IV SCH ×2 (14:56→16:59)
[2021-10-17] MEDS: HYDRALAZINE 10 MG PO SCH ×2 (17:03→23:46)
[2021-10-17] MEDS: Tamsulosin 0.4 MG Cap.ER PO SCH (20:33)
[2021-10-17] MEDS: atorvaSTATin 20 MG Tab PO SCH (20:34)
[2021-10-17] MEDS: Clopidogrel 75 MG Tab PO SCH (20:34)
[2021-10-17] MEDS: Latanoprost 0.005% Ophth Soln 2.5 ML Bottle EYEBOTH SCH (20:34)
[2021-10-17] MEDS: hydrALAZINE 25 MG Tab PO SCH (20:34)
[2021-10-18] MEDS: Piperacillin/Tazobactam 3.375 GM in Sodium Chloride 0.9% 100 ML IV SCH ×2 (02:10→15:49)
[2021-10-18] MEDS: Folic Acid 1 MG Tab PO SCH (08:32)
[2021-10-18] MEDS: Amiodarone 200 MG Tab PO SCH (08:33)
[2021-10-18] MEDS: Omeprazole 20 MG Cap.CR PO SCH ×2 (08:33→20:58)
[2021-10-18] MEDS: Finasteride 5 MG Tab PO SCH (08:33)
[2021-10-18] MEDS: hydrALAZINE 25 MG Tab PO SCH ×2 (08:33→20:58)
[2021-10-18] MEDS: Aspirin 81 MG Tab.Chew PO SCH (08:33)
[2021-10-18] MEDS: Sertraline 50 MG Tab PO SCH (08:33)
[2021-10-18] MEDS: Loratadine 10 MG Tab PO SCH (08:34)
[2021-10-18] MEDS: Apixaban 5 MG Tab PO SCH ×2 (08:34→20:59)
[2021-10-18] MEDS: amLODIPine 5 MG Tab PO SCH (08:34)
[2021-10-18] MEDS: Carvedilol 6.25 MG Tab PO SCH ×2 (08:35→17:44)
[2021-10-18] MEDS: Insulin Lispro 100 Units/ML 3 ML Vial SUBCUT SCH ×3 (08:39→17:45)
[2021-10-18] MEDS: Insulin Glarg,Human.Rec.Analog 100 Unit/ML SUBCUT SCH ×2 (08:41→20:56)
[2021-10-18] MEDS: Furosemide 100 MG/10 ML SDV IVPUSH SCH ×3 (08:42→20:54)
[2021-10-18] MEDS: Isosorbide Mononitrate 30 MG Tab.ER PO SCH (08:45)
[2021-10-18] MEDS: Dorzolamide/Timolol 2%-0.5% Ophth Soln 10 ML Bottle EYEBOTH SCH ×2 (08:59→20:59)
[2021-10-18] MEDS: Allopurinol 100 MG Tab PO SCH (09:00)
[2021-10-18 11:02] LABS: ANION GAP 13.1 mEq/L (7-13)
--- NOTE | 2021-10-18 11:08 | PCM.PN ---
- General Info Date of Service: 10/18/21 Admission Dx/Problem (Free Text): Admission Diagnosis/Problem Admission Diagnosis/Problem Short of breath on exertion Subjective Update: Patient was seen today during the rounds she feels much better and his shortness of breath has improved significantly and will probably be able to go home on Wednesday, she is still on oxygen and will try to wean it off as tolerated. Functional Status: Reports: Pain Controlled, Tolerating Diet, Ambulating, Urinating - Review of Systems General: Reports: Fever, Weakness, Appetite (good). Denies: Chills HEENT: Denies: Headaches, Sinus Congestion, Sore Throat, Visual Changes Pulmonary: Reports: Shortness of Breath. Denies: Sputum, Wheezing Cardiovascular: Reports: Dyspnea on Exertion, Edema. Denies: Chest Pain, Lightheadedness Gastrointestinal: Denies: Abdominal Pain, Difficulty Swallowing, Nausea, Vomiting Genitourinary: Denies: Dysuria, Frequency, Burning, Urgency Musculoskeletal: Reports: Neck Pain, Leg Pain Skin: Reports: Dryness. Denies: Jaundice, Diaphoresis, Bruising, Pruritis, Rash Neurological: Denies: Confusion, Numbness, Tremors Psychiatric: Denies: Confusion, Anxiety - Patient Data Vitals - Most Recent: Last Vital Signs Temp 36.2 C 10/18/21 08:08 Pulse 93 10/18/21 08:35 Resp 20 10/18/21 08:08 BP 151/58 H 10/18/21 08:45 Pulse Ox 99 10/18/21 08:08 Weight - Most Recent: 135.216 kg I&O - Last 24 Hours: Intake & Output 10/17/21 10/18/21 10/18/21 22:59 06:59 14:59 Intake Total 660 91 Balance 660 91 Lab Results Last 24 Hours: Laboratory Results - last 24 hr 10/17/21 10/17/21 10/17/21 Range/Units 11:55 17:07 20:32 POC Glucose 106 H 129 H 170 H (70-99) mg/dL 10/18/21 Range/Units 07:58 POC Glucose 44 L* (70-99) mg/dL Med Orders - Current: Current Medications Acetaminophen (Acetaminophen 325 Mg Tab) 650 mg PO Q4H PRN PRN Reason: Pain (mild 1-3 )/fever Allopurinol (Allopurinol 100 Mg Tab) 100 mg PO DAILY [facility] Last Admin: 10/18/21 09:00 Dose: 100 mg Documented by: Amiodarone HCl (Amiodarone 200 Mg Tab) 200 mg PO DAILY [facility] Last Admin: 10/18/21 08:33 Dose: 200 mg Documented by: Amlodipine Besylate (Amlodipine 5 Mg Tab) 7.5 mg PO DAILY [facility] Last Admin: 10/18/21 08:34 Dose: 7.5 mg Documented by: Apixaban (Apixaban 5 Mg Tab) 5 mg PO BID [facility] Last Admin: 10/18/21 08:34 Dose: 5 mg Documented by: Aspirin (Aspirin 81 Mg Tab.Chew) 81 mg PO DAILY [facility] Last Admin: 10/18/21 08:33 Dose: 81 mg Documented by: Atorvastatin Calcium (Atorvastatin 20 Mg Tab) 40 mg PO BEDTIME [facility] Last Admin: 10/17/21 20:34 Dose: 40 mg Documented by: Benzocaine/Menthol (Benzocaine/Cetylpyridinium/Menthol Lozenge) 1 lozenge MUCMEM Q2H PRN PRN Reason: Sore Throat Carvedilol (Carvedilol 6.25 Mg Tab) 6.25 mg PO BIDMEALS [facility] Last Admin: 10/18/21 08:35 Dose: 6.25 mg Documented by: Clopidogrel Bisulfate (Clopidogrel 75 Mg Tab) 75 mg PO BEDTIME [facility] Last Admin: 10/17/21 20:34 Dose: 75 mg Documented by: Docusate Sodium (Docusate Sodium 100 Mg Cap) 100 mg PO DAILY PRN PRN Reason: Constipation Dorzolamide/Timolol (Dorzolamide/Timolol 2%-0.5% Ophth Soln 10 Ml Bottle) 0 ml EYEBOTH BID [facility] Last Admin: 10/18/21 08:59 Dose: 1 drop Documented by: Finasteride (Finasteride 5 Mg Tab) 5 mg PO DAILY [facility] Last Admin: 10/18/21 08:33 Dose: 5 mg Documented by: Folic Acid (Folic Acid 1 Mg Tab) 2 mg PO DAILY [facility] Last Admin: 10/18/21 08:32 Dose: 2 mg Documented by: Furosemide (Furosemide 100 Mg/10 Ml Sdv) 60 mg IVPUSH TID [facility] Last Admin: 10/18/21 08:42 Dose: 60 mg Documented by: Hydralazine HCl (Hydralazine 25 Mg Tab) 25 mg PO BID [facility] Last Admin: 10/18/21 08:33 Dose: 25 mg Documented by: Piperacillin Sod/Tazobactam (Sod 3.375 gm/ Sodium Chloride) 100 mls @ 200 mls/hr IV Q12H [facility] Last Admin: 10/18/21 02:10 Dose: 200 mls/hr Documented by: Ceftriaxone Sodium 1 gm/ (Sodium Chloride) 50 mls @ 100 mls/hr IV Q24H [facility] Last Infusion: 10/17/21 17:00 Dose: Infused Documented by: Insulin Glargine (Insulin Glarg,Human.Rec.Analog 100 Unit/Ml) 28 unit SUBCUT BID [facility] Insulin Human Lispro (Insulin Lispro 100 Units/Ml 3 Ml Vial) 10 unit SUBCUT TIDMEALS [facility] Last Admin: 10/18/21 08:39 Dose: Not Given Documented by: Isosorbide Mononitrate (Isosorbide Mononitrate 30 Mg Tab.Er) 30 mg PO DAILY [facility] Last Admin: 10/18/21 08:45 Dose: 30 mg Documented by: Latanoprost (Latanoprost 0.005% Ophth Soln 2.5 Ml Bottle) 0 ml EYEBOTH BEDTIME [facility] Last Admin: 10/17/21 20:34 Dose: 1 drop Documented by: Lidocaine HCl (Lidocaine 2% Jelly 5 Ml Tube) 0 ml TOP QID PRN PRN Reason: Pain Loperamide HCl (Loperamide 2 Mg Cap) 2 mg PO ASDIRECTED PRN PRN Reason: Diarrhea Loratadine (Loratadine 10 Mg Tab) 10 mg PO DAILY [facility] Last Admin: 10/18/21 08:34 Dose: 10 mg Documented by: Diclofenac Sodium [ Voltaren 1% Gel] 100 Gm Tube 0 applic TOP DAILY [facility] Omeprazole (Omeprazole 20 Mg Cap.Cr) 20 mg PO BID [facility] Last Admin: 10/18/21 08:33 Dose: 20 mg Documented by: Sertraline HCl (Sertraline 50 Mg Tab) 50 mg PO DAILY [facility] Last Admin: 10/18/21 08:33 Dose: 50 mg Documented by: Silver Sulfadiazine (Silver Sulfadiazine 1% Crm 50 Gm Tube) 0 gm TOP ASDIRECTED [facility] Sodium Chloride (Sodium Chloride 0.9% 10 Ml Syringe) 10 ml FLUSH ASDIRECTED PRN PRN Reason: Keep Vein Open Tamsulosin HCl (Tamsulosin 0.4 Mg Cap.Er) 0.8 mg PO BEDTIME [facility] Last Admin: 10/17/21 20:33 Dose: 0.8 mg Documented by: Discontinued Medications Ceftriaxone Sodium (Ceftriaxone 1 Gm Vial) 1 gm IM Q24H [facility] Enoxaparin Sodium (Enoxaparin 40 Mg/0.4 Ml Syringe) 40 mg SUBCUT DAILY [facility] Furosemide (Furosemide 40 Mg/4 Ml Vial) 40 mg IVPUSH ONETIME ONE Stop: 10/16/21 11:17 Last Admin: 10/16/21 11:25 Dose: 40 mg Documented by: Furosemide (Furosemide 100 Mg/10 Ml Sdv) 60 mg IVPUSH BIDDIURETIC [facility] Last Admin: 10/17/21 11:26 Dose: Not Given Documented by: Insulin Glargine (Insulin Glarg,Human.Rec.Analog 100 Unit/Ml) 34 unit SUBCUT BID [facility] Last Admin: 10/18/21 08:41 Dose: Not Given Documented by: Hydralazine [ Apresoline] 10 Mg Tablet 15 mg PO TID [facility] Last Admin: 10/17/21 23:46 Dose: Not Given Documented by: - Exam Quality Assessment: Supplemental Oxygen, DVT Prophylaxis. No: Central Line/PICC, Urine Catheter General: Alert, Oriented, Cooperative, No Acute Distress HEENT: Pupils Equal, Pupils Reactive, EOMI, Mucous Membr. Moist/[place] Neck: Supple, No JVD, No Thyromegaly Lungs: Clear to Auscultation, Normal Respiratory Effort Cardiovascular: Regular Rate, Regular Rhythm, Murmurs GI/Abdominal Exam: Normal Bowel Sounds, No Organomegaly, No Distention (Male) Exam: Deferred Back Exam: Normal Inspection Extremities: Normal Inspection, Pedal Edema Skin: Warm, Dry, Intact Neurological: No New Focal Deficit Psy/Mental Status: Alert, Normal Affect, Normal Mood - Patient Data Lab Results Last 24 hrs: Laboratory Results - last 24 hr 10/17/21 10/17/21 10/17/21 Range/Units 11:55 17:07 20:32 POC Glucose 106 H 129 H 170 H (70-99) mg/dL 10/18/21 Range/Units 07:58 POC Glucose 44 L* (70-99) mg/dL Result Diagrams: 10/16/21 09:20 10/17/21 06:05 Sepsis Event Note - Evaluation Sepsis Screening Result: No Definite Risk - Focused Exam Vital Signs: Vital Signs Temp Pulse Pulse Resp BP BP BP 10/18/21 08:45 151/58 H 10/18/21 08:35 93 151/58 H 10/18/21 08:34 151/58 H 10/18/21 08:33 151/58 H 10/18/21 08:08 36.2 C 93 20 151/58 H 10/18/21 04:00 36.7 C 56 L 16 132/64 10/18/21 00:00 36.2 C 61 20 154/65 H Pulse Ox 10/18/21 08:45 10/18/21 08:35 10/18/21 08:34 10/18/21 08:33 10/18/21 08:08 99 10/18/21 04:00 98 10/18/21 00:00 98 - Problem List & Annotations (1) Chronic kidney disease (CKD), stage IV (severe) SNOMED Code(s): 286303231 Code(s): N18.4 - CHRONIC KIDNEY DISEASE, STAGE 4 (SEVERE) Status: Acute Current Visit: No (2) Congestive heart failure SNOMED Code(s): 65545390 Code(s): I50.9 - HEART FAILURE, UNSPECIFIED Status: Acute Current Visit: No Qualifiers: Heart failure type: unspecified Heart failure chronicity: acute on chronic Qualified Code(s): I50.9 - Heart failure, unspecified (3) Hypertension SNOMED Code(s): 51952362 Code(s): I10 - ESSENTIAL (PRIMARY) HYPERTENSION Status: Acute Current Visit: No (4) Pneumonia SNOMED Code(s): 316130598 Code(s): J18.9 - PNEUMONIA, UNSPECIFIED ORGANISM Status: Acute Current Visit: No Qualifiers: Pneumonia type: due to unspecified organism Laterality: unspecified laterality Lung location: unspecified part of lung Qualified Code(s): J18.9 - Pneumonia, unspecified organism - Problem List Review Problem List Initiated/Reviewed/Updated: Yes - My Orders Last 24 Hours: My Active Orders 10/17/21 18:34 Sodium Chloride 0.9% [Saline Flush] 10 ml FLUSH ASDIRECTED PRN 10/17/21 21:00 hydrALAZINE [Apresoline] 25 mg PO BID 10/18/21 09:00 Loratadine [Claritin] 10 mg PO DAILY 10/18/21 10:39 BASIC METABOLIC PANEL,BMP [CHEM] Routine 10/18/21 21:00 Insulin Glarg,Human.Rec.Analog [LantUS] 28 unit SUBCUT BID - Plan Plan:: Mr. Rucker is a 76-year-old male presented to ED with increased shortness of breath which is going on for couple of days but progressively getting worse, he has past medical history which is significant for hypertension, diabetes type 2 insulin-dependent, dependent edema and chronic kidney disease stage IV with baseline creatinine range from 2.4 to 3.6 mg/dL. Impression and plan: 1. Increased shortness of breath: I reviewed the chest x-ray done which showed bilateral patchy opacities and pulmonary edema. -Will continue Lasix at 60 mg IV 3 times a day [ was at 60 mg IV 2 times a day.] Continue I/O recording and daily weights. I have discussed with the patient that he has high degree of renal disease to begin with and with diuresis there could be increase in creatinine but will discuss about the possibility of going into dialysis if things do not improve or if there is a significant drop in renal function or if the response to diuretics is poor . The patient is on lisinopril and I have stopped lisinopril as I plan for aggressive diuresis. 2. Hypertension: His blood pressure is acceptable I will continue him with the home medication, Coreg at 6.25 twice a day and hydralazine 50 mg 3 times a day. 3. Diabetes type 2 insulin-dependent: The patient has longstanding diabetes but I do not know the status of his diabetes control he gets [facility] and will get more data from [facility] to see how the diabetes controlled he has over a prolonged. 4. Edema of extremities: He has bilateral lower extremity fluid retention and I am going to change Lasix to 60 mg IV TID [ was at 60 mg IV 2 times a day], check his weight on a daily basis and also check I and O recording for every shift. 5. Possible lower base pneumonia: He has significant opacities could not be excluded the pneumonia, will start him on azithromycin and ceftriaxone. 6. Dyslipidemia we will continue him with his home with statins. GI prophylaxis: We will continue him on Protonix 40 mg p.o. daily with his breakfast. DVT prophylaxis: The patient is on Eliquis. CODE STATUS: I discussed with patient about his CODE STATUS and he is full code. This dictation is done via [employer] dictation system.
[2021-10-18] MEDS: cefTRIAXone 1 GM in Sodium Chloride 0.9% 50 ML IV SCH (16:39)
[2021-10-18] MEDS: Sodium Chloride 0.9% 10 ML Syringe FLUSH PRN (20:52)
[2021-10-18] MEDS: Tamsulosin 0.4 MG Cap.ER PO SCH (20:58)
[2021-10-18] MEDS: Latanoprost 0.005% Ophth Soln 2.5 ML Bottle EYEBOTH SCH (20:58)
[2021-10-18] MEDS: Clopidogrel 75 MG Tab PO SCH (20:58)
[2021-10-18] MEDS: atorvaSTATin 20 MG Tab PO SCH (20:58)
[2021-10-19] MEDS: Sodium Chloride 0.9% 10 ML Syringe FLUSH PRN (02:32)
[2021-10-19] MEDS: Piperacillin/Tazobactam 3.375 GM in Sodium Chloride 0.9% 100 ML IV SCH (02:35)
--- NOTE | 2021-10-19 09:17 | PCM.DCSUM1 ---
Discharge Summary - Hospital Course Free Text/Narrative:: Mr. Rucker is a 76-year-old male presented to ED with increased shortness of breath which is going on for couple of days but progressively getting worse, he has past medical history which is significant for hypertension, diabetes type 2 insulin-dependent, dependent edema and chronic kidney disease stage IV with baseline creatinine range from 2.4 to 3.6 mg/dL. He says gets followed by mortgage collector at [facility]. [facility] also [facility] [place] and also [facility] goes [facility] [place] [place]. after the admission he was started on Lasix 60 mg IV 3 times a day and he did very well his lower extremity edema has improved significantly and now he is on his regular home oxygen 2 L/min, and he will go home with the same oxygen. He is advised to follow-up with his mortgage collector as well as his primary care physician within a week time. He will resume his home torsemide 40 mg daily. Home health nursing to resume for medication management and education on disease process. Diagnosis: Stroke: No - Discharge Data Discharge Date: 10/19/21 Discharge Disposition: Home, Self-Care 01 Condition: Good - Referral to Home Health Primary Care Physician: PCP None - Discharge Diagnosis/Problem(s) (1) Chronic kidney disease (CKD), stage IV (severe) SNOMED Code(s): 767768176 ICD Code: N18.4 - CHRONIC KIDNEY DISEASE, STAGE 4 (SEVERE) Status: Acute Current Visit: No (2) Congestive heart failure SNOMED Code(s): 12435811 ICD Code: I50.9 - HEART FAILURE, UNSPECIFIED Status: Acute Current Visit: No Qualifiers: Heart failure type: unspecified Heart failure chronicity: acute on chronic Qualified Code(s): I50.9 - Heart failure, unspecified (3) Hypertension SNOMED Code(s): 24062063 ICD Code: I10 - ESSENTIAL (PRIMARY) HYPERTENSION Status: Acute Current Visit: No (4) Pneumonia SNOMED Code(s): 865687148 ICD Code: J18.9 - PNEUMONIA, UNSPECIFIED ORGANISM Status: Acute Current Visit: No Qualifiers: Pneumonia type: due to unspecified organism Laterality: unspecified laterality Lung location: unspecified part of lung Qualified Code(s): J18.9 - Pneumonia, unspecified organism - Patient Instructions Diet: Heart Healthy Diet Activity: As Tolerated Showering/Bathing: May Shower Notify Provider of: Fever, Nausea and/or Vomiting Other/Special Instructions: The patient was admitted with increased shortness of breath and his Lasix dose was increased to 60 mg IV 3 times a day, he was also started on IV antibiotics for possible pneumonia. He will go home on Torsemide at 40 mg daily, and also Cefpodoxime 100 mg 2 times a day for 5 days. Advised the patient to follow-up with mortgage collector as well as primary care physician within a week time. Advised him to discuss with his mortgage collector about future dialysis plan including home hemodialysis/peritoneal dialysis and and regular hemodialysis. He will not be a candidate for transplant because of his age. - Discharge Plan *PRESCRIPTION DRUG MONITORING PROGRAM REVIEWED*: Not Applicable *COPY OF PRESCRIPTION DRUG MONITORING REPORT IN PATIENT BRANDI: Not Applicable Prescriptions/Med Rec: Cefpodoxime [Vantin] 100 mg PO BID 5 Days #5 tablet Home Medications: Home Meds Clopidogrel [Plavix] 75 mg PO BEDTIME 02/05/15 [History] Dorzolamide HCl/Timolol Maleat [Dorzolamide-Timolol Eye Drops] 1 drop EYEBOTH BID 02/05/15 [History] Folic Acid 2 mg PO DAILY 02/05/15 [History] Insulin Aspart [NovoLOG] 10 units SQ TIDMEALS 02/05/15 [History] Insulin Glarg,Human.Rec.Analog [Lantus Solostar] 34 units SQ BID 02/05/15 [History] Latanoprost [Xalatan 0.005% Ophth Soln] 1 drop EYEBOTH BEDTIME 02/05/15 [History] Loperamide [Imodium] 2 mg PO ASDIRECTED PRN 02/05/15 [History] Omeprazole 20 mg PO BID 02/05/15 [History] Tamsulosin [Flomax] 0.8 mg PO BEDTIME 02/05/15 [History] Acetaminophen 975 mg PO Q6H PRN 10/16/21 [History] Amiodarone [Cordarone] 200 mg PO DAILY 10/16/21 [History] Apixaban [Eliquis] 5 mg PO BID 10/16/21 [History] Aspirin 81 mg PO DAILY 10/16/21 [History] Cetirizine [ZyrTEC] 10 mg PO DAILY 10/16/21 [History] Cholecalciferol (Vitamin D3) [Vitamin D3] 400 unit PO DAILY 10/16/21 [History] Dextromethorphan/Benzocaine [Cepacol Sore Throat-Cough Ena] 1 each PO Q2H PRN 10/16/21 [History] Diclofenac Sodium [Voltaren 1% Gel] 1 applic TOP DAILY 10/16/21 [History] Finasteride [Proscar] 5 mg PO DAILY 10/16/21 [History] Fluticasone Propionate [Flonase] 1 spray NASBOTH BID 10/16/21 [History] Isosorbide Mononitrate [Isosorbide Mononitrate ER] 30 mg PO DAILY 10/16/21 [History] Lidocaine 2% [Xylocaine 2% Jelly] 1 applic TOP QID PRN 10/16/21 [History] Sertraline [Zoloft] 50 mg PO DAILY 10/16/21 [History] Silver Sulfadiazine [Silvadene 1% Cream 50 GM] 1 applic TOP ASDIRECTED 10/16/21 [History] Torsemide 40 mg PO DAILY 10/16/21 [History] allopurinoL [Zyloprim] 100 mg PO DAILY 10/16/21 [History] amLODIPine [Norvasc] 7.5 mg PO DAILY 10/16/21 [History] atorvaSTATin [Lipitor] 40 mg PO BEDTIME 10/16/21 [History] carvediloL [Carvedilol] 6.25 mg PO BID 10/16/21 [History] hydrALAZINE [Apresoline] 15 mg PO TID 10/16/21 [History] predniSONE 20 mg PO DAILY PRN 10/16/21 [History] Cefpodoxime [Vantin] 100 mg PO BID 5 Days #5 tablet 10/19/21 [Rx] Oxygen Therapy Mode: Nasal Cannula Patient Handouts: Food Basics for Chronic Kidney Disease, Shortness of Breath, Adult, [id number], Cefpodoxime Tablets, End-Stage Kidney Disease Referrals: Anny Wall PA [Ordering Only Provider] - - Discharge Summary/Plan Comment DC Time >30 min.: Yes Total # of Minutes for Discharge Time: Total time spent today in this patient's discharge was greater than 30 minutes. Discharge Summary/Plan Comment: Impression and plan: 1. Increased shortness of breath: I reviewed the chest x-ray done which showed bilateral patchy opacities and pulmonary edema. He will go home on his home diuretics Torsemide at 40 mg daily I have discussed with the patient that he has high degree of renal disease to begin with and advised him to follow-up with his mortgage collector in a week time. 2. Hypertension: His blood pressure is acceptable I will continue him with the home medication, Coreg at 6.25 twice a day and hydralazine 50 mg 3 times a day. 3. Diabetes type 2 insulin-dependent: The patient has longstanding diabetes but I do not know the status of his diabetes control he [facility] and will get more data from [facility] to see how the diabetes controlled he has over a prolonged. 4. Edema of extremities: He has bilateral lower extremity fluid retention He responded very well to IV Lasix and he will go home and resume Torsemide at 40 mg p.o daily Advised to check weight daily and follow-up with the mortgage collector in a week time for further adjustment of the diuretics dose if needed. 5. Possible lower base pneumonia: He has significant opacities could not be excluded the pneumonia, will he will go home on Cefpodoxime 100 mg 2 times a day for another 5 days. 6. Disposition: Patient will be going home today and advised the patient to have follow-up with his mortgage collector in a week time, for further adjustment of his diuretics dose, and also need discussion with mortgage collector about the future plan for dialysis, kidney transplant, and discussion about peritoneal dialysis/home hemodialysis. This dictation is done via [employer] dictation system. - General Info Date of Service: 10/19/21 Admission Dx/Problem (Free Text: Admission Diagnosis/Problem Admission Diagnosis/Problem Short of breath on exertion Subjective Update: Patient was seen today during the rounds she feels much better and his shortness of breath has improved significantly and will be able to go home Today , he will continue supplemental oxygen 2L/min. Functional Status: Reports: Pain Controlled, Tolerating Diet, Ambulating, Urinating - Review of Systems General: Reports: Appetite (Good). Denies: Fever, Weakness, Chills HEENT: Denies: Dysphasia, Headaches, Sinus Congestion, Sore Throat, Visual Changes Pulmonary: Denies: Shortness of Breath, Cough, Sputum, Wheezing Cardiovascular: Reports: Edema. Denies: Chest Pain, Lightheadedness Gastrointestinal: Denies: Abdominal Pain, Diarrhea, Difficulty Swallowing, Nausea, Vomiting Genitourinary: Denies: Dysuria, Frequency, Burning, Flank Pain Musculoskeletal: Denies: Neck Pain, Leg Pain, Joint Pain Skin: Denies: Cyanosis, Jaundice, Bruising, Pruritis, Rash Neurological: Denies: Confusion, Numbness, Tremors Psychiatric: Denies: Confusion, Anxiety - Patient Data Vitals - Most Recent: Last Vital Signs Temp 36.9 C 10/19/21 08:31 Pulse 74 10/19/21 08:31 Resp 20 10/19/21 08:31 BP 146/60 H 10/19/21 08:31 Pulse Ox 96 10/19/21 08:31 Weight - Most Recent: 130.997 kg I&O - Last 24 hours: Intake & Output 10/18/21 10/19/21 10/19/21 22:59 06:59 14:59 Intake Total 1180 Output Total 375 Balance 1180 -375 Lab Results - Last 24 hrs: Laboratory Results - last 24 hr 10/18/21 10/18/21 10/18/21 Range/Units 10:39 11:29 16:50 Sodium 141 (136-145) mmol/L Potassium 4.1 (3.5-5.1) mmol/L Chloride 102 (98-107) mmol/L Carbon Dioxide 30 (21-32) mmol/L Anion Gap 13.1 H (7-13) mEq/L BUN 38 H (7-18) mg/dL Creatinine 2.94 H (0.70-1.30) mg/dL Est Cr Clr Drug Dosing 24.85 mL/min Estimated GFR (MDRD) 21 Glucose 127 H (70-99) mg/dL POC Glucose 122 H 164 H (70-99) mg/dL Calcium 8.3 L (8.5-10.1) mg/dL 10/18/21 10/19/21 Range/Units 20:40 08:13 Sodium (136-145) mmol/L Potassium (3.5-5.1) mmol/L Chloride (98-107) mmol/L Carbon Dioxide (21-32) mmol/L Anion Gap (7-13) mEq/L BUN (7-18) mg/dL Creatinine (0.70-1.30) mg/dL Est Cr Clr Drug Dosing mL/min Estimated GFR (MDRD) Glucose (70-99) mg/dL POC Glucose 232 H 109 H (70-99) mg/dL Calcium (8.5-10.1) mg/dL Med Orders - Current: Current Medications Acetaminophen (Acetaminophen 325 Mg Tab) 650 mg PO Q4H PRN PRN Reason: Pain (mild 1-3 )/fever Allopurinol (Allopurinol 100 Mg Tab) 100 mg PO DAILY [facility] Last Admin: 10/18/21 09:00 Dose: 100 mg Documented by: Amiodarone HCl (Amiodarone 200 Mg Tab) 200 mg PO DAILY [facility] Last Admin: 10/18/21 08:33 Dose: 200 mg Documented by: Amlodipine Besylate (Amlodipine 5 Mg Tab) 7.5 mg PO DAILY [facility] Last Admin: 10/18/21 08:34 Dose: 7.5 mg Documented by: Apixaban (Apixaban 5 Mg Tab) 5 mg PO BID [facility] Last Admin: 10/18/21 20:59 Dose: 5 mg Documented by: Aspirin (Aspirin 81 Mg Tab.Chew) 81 mg PO DAILY [facility] Last Admin: 10/18/21 08:33 Dose: 81 mg Documented by: Atorvastatin Calcium (Atorvastatin 20 Mg Tab) 40 mg PO BEDTIME [facility] Last Admin: 10/18/21 20:58 Dose: 40 mg Documented by: Benzocaine/Menthol (Benzocaine/Cetylpyridinium/Menthol Lozenge) 1 lozenge MUCMEM Q2H PRN PRN Reason: Sore Throat Carvedilol (Carvedilol 6.25 Mg Tab) 6.25 mg PO BIDMEALS [facility] Last Admin: 10/18/21 17:44 Dose: 6.25 mg Documented by: Clopidogrel Bisulfate (Clopidogrel 75 Mg Tab) 75 mg PO BEDTIME [facility] Last Admin: 10/18/21 20:58 Dose: 75 mg Documented by: Docusate Sodium (Docusate Sodium 100 Mg Cap) 100 mg PO DAILY PRN PRN Reason: Constipation Dorzolamide/Timolol (Dorzolamide/Timolol 2%-0.5% Ophth Soln 10 Ml Bottle) 0 ml EYEBOTH BID [facility] Last Admin: 10/18/21 20:59 Dose: 1 drop Documented by: Finasteride (Finasteride 5 Mg Tab) 5 mg PO DAILY [facility] Last Admin: 10/18/21 08:33 Dose: 5 mg Documented by: Folic Acid (Folic Acid 1 Mg Tab) 2 mg PO DAILY [facility] Last Admin: 10/18/21 08:32 Dose: 2 mg Documented by: Furosemide (Furosemide 100 Mg/10 Ml Sdv) 60 mg IVPUSH TID [facility] Last Admin: 10/18/21 20:54 Dose: 60 mg Documented by: Hydralazine HCl (Hydralazine 25 Mg Tab) 25 mg PO BID [facility] Last Admin: 10/18/21 20:58 Dose: 25 mg Documented by: Piperacillin Sod/Tazobactam (Sod 3.375 gm/ Sodium Chloride) 100 mls @ 200 mls/hr IV Q12H [facility] Last Admin: 10/19/21 02:35 Dose: 200 mls/hr Documented by: Ceftriaxone Sodium 1 gm/ (Sodium Chloride) 50 mls @ 100 mls/hr IV Q24H [facility] Last Infusion: 10/18/21 18:14 Dose: Infused Documented by: Insulin Glargine (Insulin Glarg,Human.Rec.Analog 100 Unit/Ml) 28 unit SUBCUT BID [facility] Last Admin: 10/18/21 20:56 Dose: 28 units Documented by: Insulin Human Lispro (Insulin Lispro 100 Units/Ml 3 Ml Vial) 10 unit SUBCUT TIDMEALS [facility] Last Admin: 10/18/21 17:45 Dose: Not Given Documented by: Isosorbide Mononitrate (Isosorbide Mononitrate 30 Mg Tab.Er) 30 mg PO DAILY [facility] Last Admin: 10/18/21 08:45 Dose: 30 mg Documented by: Latanoprost (Latanoprost 0.005% Ophth Soln 2.5 Ml Bottle) 0 ml EYEBOTH BEDTIME [facility] Last Admin: 10/18/21 20:58 Dose: 1 drop Documented by: Lidocaine HCl (Lidocaine 2% Jelly 5 Ml Tube) 0 ml TOP QID PRN PRN Reason: Pain Loperamide HCl (Loperamide 2 Mg Cap) 2 mg PO ASDIRECTED PRN PRN Reason: Diarrhea Loratadine (Loratadine 10 Mg Tab) 10 mg PO DAILY [facility] Last Admin: 10/18/21 08:34 Dose: 10 mg Documented by: Diclofenac Sodium [ Voltaren 1% Gel] 100 Gm Tube 0 applic TOP DAILY [facility] Omeprazole (Omeprazole 20 Mg Cap.Cr) 20 mg PO BID [facility] Last Admin: 10/18/21 20:58 Dose: 20 mg Documented by: Sertraline HCl (Sertraline 50 Mg Tab) 50 mg PO DAILY [facility] Last Admin: 10/18/21 08:33 Dose: 50 mg Documented by: Silver Sulfadiazine (Silver Sulfadiazine 1% Crm 50 Gm Tube) 0 gm TOP ASDIRECTED [facility] Sodium Chloride (Sodium Chloride 0.9% 10 Ml Syringe) 10 ml FLUSH ASDIRECTED PRN PRN Reason: Keep Vein Open Last Admin: 10/19/21 02:32 Dose: 10 ml Documented by: Tamsulosin HCl (Tamsulosin 0.4 Mg Cap.Er) 0.8 mg PO BEDTIME [facility] Last Admin: 10/18/21 20:58 Dose: 0.8 mg Documented by: Discontinued Medications Ceftriaxone Sodium (Ceftriaxone 1 Gm Vial) 1 gm IM Q24H [facility] Enoxaparin Sodium (Enoxaparin 40 Mg/0.4 Ml Syringe) 40 mg SUBCUT DAILY [facility] Furosemide (Furosemide 40 Mg/4 Ml Vial) 40 mg IVPUSH ONETIME ONE Stop: 10/16/21 11:17 Last Admin: 10/16/21 11:25 Dose: 40 mg Documented by: Furosemide (Furosemide 100 Mg/10 Ml Sdv) 60 mg IVPUSH BIDDIURETIC [facility] Last Admin: 10/17/21 11:26 Dose: Not Given Documented by: Insulin Glargine (Insulin Glarg,Human.Rec.Analog 100 Unit/Ml) 34 unit SUBCUT BID [facility] Last Admin: 10/18/21 08:41 Dose: Not Given Documented by: Hydralazine [ Apresoline] 10 Mg Tablet 15 mg PO TID [facility] Last Admin: 10/17/21 23:46 Dose: Not Given Documented by: - Exam Quality Assessment: Reports: Supplemental Oxygen, DVT Prophylaxis. Denies: Central Line/PICC, Urine Catheter General: Reports: Alert, Oriented HEENT: Reports: Pupils Equal, Pupils Reactive, EOMI, Mucous Membr. Moist/[place] Neck: Reports: Supple, No JVD, No Thyromegaly Lungs: Reports: Clear to Auscultation, Normal Respiratory Effort, Crackles, Wheezing Cardiovascular: Reports: Regular Rate, Regular Rhythm, Murmurs GI/Abdominal Exam: Normal Bowel Sounds, Non-Tender, No Distention. No: Rebound, Tender (Male) Exam: Deferred Rectal (Males) Exam: Deferred Back Exam: Reports: Normal Inspection Extremities: Normal Inspection, No Pedal Edema Skin: Reports: Warm, Dry, Intact Neurological: Reports: No New Focal Deficit Psy/Mental Status: Reports: Alert, Normal Affect, Normal Mood
[2021-10-19] MEDS: Folic Acid 1 MG Tab PO SCH (09:53)
[2021-10-19] MEDS: Apixaban 5 MG Tab PO SCH (09:53)
[2021-10-19] MEDS: Loratadine 10 MG Tab PO SCH (09:53)
[2021-10-19] MEDS: Carvedilol 6.25 MG Tab PO SCH (09:54)
[2021-10-19] MEDS: Aspirin 81 MG Tab.Chew PO SCH (09:55)
[2021-10-19] MEDS: Sertraline 50 MG Tab PO SCH (09:55)
[2021-10-19] MEDS: Isosorbide Mononitrate 30 MG Tab.ER PO SCH (09:56)
[2021-10-19] MEDS: Finasteride 5 MG Tab PO SCH (09:56)
[2021-10-19] MEDS: Allopurinol 100 MG Tab PO SCH (09:56)
[2021-10-19] MEDS: Omeprazole 20 MG Cap.CR PO SCH (09:56)
[2021-10-19] MEDS: hydrALAZINE 25 MG Tab PO SCH (09:57)
[2021-10-19] MEDS: amLODIPine 5 MG Tab PO SCH (09:57)
[2021-10-19] MEDS: Amiodarone 200 MG Tab PO SCH (09:59)
[2021-10-19] MEDS: Furosemide 100 MG/10 ML SDV IVPUSH SCH (10:11)
[2021-10-19] MEDS: Insulin Glarg,Human.Rec.Analog 100 Unit/ML SUBCUT SCH (10:12)
[2021-10-19] MEDS: Insulin Lispro 100 Units/ML 3 ML Vial SUBCUT SCH ×2 (10:13→12:45)
[2021-10-19] MEDS: Dorzolamide/Timolol 2%-0.5% Ophth Soln 10 ML Bottle EYEBOTH SCH (10:14)
[2021-10-19 10:35] LABS: ANION GAP 16.9 mEq/L (7-13)
[2021-10-19] MEDS ORDERED: Piperacillin/Tazobactam 3.375 GM in Sodium Chloride 0.9% 100 ML IV SCH (11:00)
[2021-10-19] MEDS ORDERED: cefTRIAXone 1 GM in Sodium Chloride 0.9% 50 ML IV SCH (11:00)
[2021-10-19 13:16] VITALS: BP 142/61; PULSE 73
== END 2021-10-19 14:00 | disposition home or self-care (01) | DRG 193 ==
LOC: DL.ED 08:57 → DL.MS 13:01
PROVIDERS: ADMIT Internal Medicine Nephrology; ATTEND Internal Medicine Nephrology
DX: R06.02 Shortness of breath (principal); R79.89 Other specified abnormal findings of blood chemistry; Z72.0 Tobacco use; J18.9 Pneumonia, unspecified organism; I12.9 Hypertensive chronic kidney disease with stage 1 through stage 4 chronic kidney disease, or unspecified chronic kidney disease; N18.30 Chronic kidney disease, stage 3 unspecified; I50.33 Acute on chronic diastolic (congestive) heart failure; I13.0 Hypertensive heart and chronic kidney disease with heart failure and stage 1 through stage 4 chronic kidney disease, or unspecified chronic kidney disease; N18.4 Chronic kidney disease, stage 4 (severe); E11.22 Type 2 diabetes mellitus with diabetic chronic kidney disease; Z79.02 Long term (current) use of antithrombotics/antiplatelets; Z79.4 Long term (current) use of insulin; Z79.899 Other long term (current) drug therapy; Z79.52 Long term (current) use of systemic steroids; Z85.528 Personal history of other malignant neoplasm of kidney; Z79.82 Long term (current) use of aspirin; Z88.1 Allergy status to other antibiotic agents; I48.91 Unspecified atrial fibrillation; I25.10 Atherosclerotic heart disease of native coronary artery without angina pectoris; E78.00 Pure hypercholesterolemia, unspecified; I25.2 Old myocardial infarction; G47.30 Sleep apnea, unspecified; J44.9 Chronic obstructive pulmonary disease, unspecified; G89.29 Other chronic pain; M54.9 Dorsalgia, unspecified; E11.42 Type 2 diabetes mellitus with diabetic polyneuropathy; F32.A Depression, unspecified; E66.9 Obesity, unspecified; D50.9 Iron deficiency anemia, unspecified; Z85.038 Personal history of other malignant neoplasm of large intestine; Z86.19 Personal history of other infectious and parasitic diseases; Z90.49 Acquired absence of other specified parts of digestive tract; F17.210 Nicotine dependence, cigarettes, uncomplicated; Z20.822 Contact with and (suspected) exposure to COVID-19; E78.5 Hyperlipidemia, unspecified; Z68.37 Body mass index [BMI] 37.0-37.9, adult
CPT/HCPCS: 0240U; 36415; 71045; 80048; 80053; 82947; 83605; 83880; 84484; 85025; 85379; 93005; 96374; 99285-25; A9270-GY; J0696; J1815-GY; J1940; J2543

== ENCOUNTER 2021-11-05 09:37 | Emergency (ER) | payer OTHER, MEDICARE ==
[2021-11-05 10:29] VITALS: BP 147/55; PULSE 74
[2021-11-05 10:39] LABS: CORONAVIRUS COVID-19 NAA NEGATIVE (NEGATIVE)
== END 2021-11-05 13:00 ==
LOC: DL.ED 09:37
DX: K92.2 Gastrointestinal hemorrhage, unspecified (principal); I13.0 Hypertensive heart and chronic kidney disease with heart failure and stage 1 through stage 4 chronic kidney disease, or unspecified chronic kidney disease; N18.4 Chronic kidney disease, stage 4 (severe); I50.9 Heart failure, unspecified; R06.02 Shortness of breath; I48.91 Unspecified atrial fibrillation; I25.10 Atherosclerotic heart disease of native coronary artery without angina pectoris; E78.00 Pure hypercholesterolemia, unspecified; I25.2 Old myocardial infarction; E66.9 Obesity, unspecified; Z68.36 Body mass index [BMI] 36.0-36.9, adult; Z88.1 Allergy status to other antibiotic agents; Z79.02 Long term (current) use of antithrombotics/antiplatelets; Z79.899 Other long term (current) drug therapy; Z20.822 Contact with and (suspected) exposure to COVID-19
CPT/HCPCS: 0240U; 36415; 80053; 82272; 83605; 83880; 84484; 85025; 85379; 93005; 99285